=== PATIENT | male | born 1995 | race Two or more races ===

== ENCOUNTER 2017-03-13 18:19 | Emergency (ER) | payer SELFPAY ==
[~2017-03-13] VITALS: Ht 167.6 cm; Wt 63.5 kg
[2017-03-13] MEDS ORDERED: CEPH500T7 PO (19:30)
--- NOTE | 2017-03-13 19:34 | ER Report ---
History and Physical Time Seen By MD: 18:40 Hx. of Stated Complaint: 3 days sore throat HPI/ROS CHIEF COMPLAINT: Sore throat HISTORY OF PRESENT ILLNESS: 22-year-old male patient presents to emergency room with complaint of sore throat. Patient states that he's been having sore throat for the past 3 days. Patient denies having any chills, however he states that he is felt, shaky like he's had a fever. Patient states that his throat hurts pretty significantly. He rates as a 9.5 out of 10. Patient states he is able to eat and drink without any difficulties. Patient states he is visiting from [place] and [place] with a friend. He states that he is not having nausea, vomiting or diarrhea. Allergies: Coded Allergies: No Known Drug Allergies (Unverified , 03/13/17) Home Meds Active Scripts Cephalexin 500 Mg Tab (KEFLEX 500 MG TAB) 500 Mg Tablet, 500 MG PO Q6H, #28 TAB Prov:LOUANNDEANNA HAZARDOUS MATERIAL TECHNICIAN 03/13/17 Past Medical/Surgical History Patient has a past medical history of hiatal hernia. Patient has a surgical history of endoscopy. Reviewed Nurses Notes: Yes Hx Substance Use Disorder: No Hx Alcohol Use: No Constitutional Vital Sign - Last 24 Hours 03/13/17 03/13/17 18:34 19:39 Temp 100.6 100.5 Pulse 89 95 Resp 18 16 B/P (MAP) 130/72 128/82 (97) Pulse Ox 96 95 O2 Delivery Room Air Room Air Physical Exam General appearance: Alert no distress. Respiratory: Chest is non tender, lungs are clear to auscultation. Cardiac: Regular rate and rhythm. ENT: Tympanic membranes are pearly-hwang, auditory canals are patent, mucous membranes are moist. Patient does have significant purulent discharge from the bilateral tonsils. DIFFERENTIAL DIAGNOSIS: After history and physical exam differential diagnosis was considered for influenza, strep, mono. Medical Decision Making Data Points Laboratory Hematology Test 03/13/17 18:36 Influenza Type A Antigen Negative (NEGATIVE) Influenza Type B Antigen Negative (NEGATIVE) Group A Streptococcus Screen Negative (NEGATIVE) Chemistry Test 03/13/17 18:36 Influenza Type A Antigen Negative (NEGATIVE) Influenza Type B Antigen Negative (NEGATIVE) Group A Streptococcus Screen Negative (NEGATIVE) ED Course/Re-evaluation ED Course Patient was admitted in exam room, history and physical were obtained. Differential diagnoses were considered. On examination patient has purulent discharge from the bilateral tonsils as well as posterior pharynx. A strep screen was obtained, influenza screen was also obtained. The results of the lab tests were negative. I discussed findings with patient. We will go ahead and treat him with Keflex, presuming that this is a bacterial infection. I do have some concerns about possible mono. Does well like him follow-up with his primary care provider next 3-5 days. If he is having persistent trouble at that time I think that a Monospot would be appropriate. I discussed this with the patient who verbalized understanding and agreement. Decision to Disposition Date: Mar 13, 2017 Decision to Disposition Time: 19:33 Depart Departure Latest Vital Signs Vital Signs Date Time Temp Pulse Resp B/P (MAP) Pulse Ox O2 Delivery O2 Flow Rate FiO2 03/13/17 19:39 100.5 95 16 128/82 (97) 95 Room Air Impression: Primary Impression: Pharyngitis Condition: Improved Disposition: HOME OR SELF-CARE New Scripts Cephalexin 500 Mg Tab (KEFLEX 500 MG TAB) 500 Mg Tablet 500 MG PO Q6H, #28 TAB Prov: DEANNA LEW 03/13/17 Patient Instructions: Pharyngitis (ED) Additional Instructions: Increase fluid intake. Get plenty of rest. Follow up with your primary care provider in the next 3-5 days. We are going to culture the swab and will call if there is any need to change your antibiotics. Take Tylenol or Ibuprofen as needed for pain. Use the Chloraseptic [place] to help with the pain. Magic Mouthwash as directed for pain Problem Qualifiers Primary Impression: Pharyngitis Pharyngitis/tonsillitis etiology: unspecified etiology Qualified Codes: J02.9 - Acute pharyngitis, unspecified DEANNA LEW Mar 13, 2017 19:34
[2017-03-13] MEDS ORDERED: CEPHALEXIN 500 MG CAP TH 2 CAP/BOTTLE PO ONE (19:35)
[2017-03-13] MEDS ORDERED: LIDOCAINE 2% VISC SLN 15ML UDC PO ONE (19:35)
[2017-03-13 19:39] VITALS: BP 128/82
[2017-03-14] MEDS ORDERED: TETR-30 PO (10:38)
[2017-03-14] MEDS ORDERED: ONDA4TAB PO (10:38)
[2017-03-14] MEDS ORDERED: METR-160 PO (10:38)
[2017-03-14] MEDS ORDERED: BISM262T85 PO (10:38)
[2017-03-14] MEDS ORDERED: OMEP-125 PO (10:38)
== END 2017-03-13 19:48 | disposition home or self-care (01) ==
LOC: ER 18:36
DX: J02.9 Acute pharyngitis, unspecified (principal)
CPT/HCPCS: 87081; 87502; 87880; 99282

== ENCOUNTER 2017-03-14 09:25 | Emergency (ER) | payer SELFPAY ==
[~2017-03-14] VITALS: Ht 167.6 cm; Wt 63.5 kg
[~2017-03-14 09:25] MED LIST: CEPH500T7 PO
--- NOTE | 2017-03-14 09:31 | ER Report ---
History and Physical Time Seen By MD: 09:28 HPI/ROS CC: Nausea vomiting HPI: 22-year-old male with a negative past medical history presents to the emergency department with nausea vomiting that started at approximately midnight. It's been ongoing for approximately 10 hours. He states that his last meal was 20/ 100 last night and then started with nausea vomiting approximately 3 hours after that. He states that he ate tamales. He was in the emergency department yesterday for sore throat and was started for influenza. B and strep were negative. He states that he also has GERD with I hernia and presently he has epigastric pain. Burning in nature that he is reading as 8-9 out of 10. He has not been tested in the past for H. pylori. He he denies any hematemesis or diarrhea. No alleviating factors. Activity makes it worse. ROS: 12 point review of systems essentially negative other than what's mentioned in history of present illness. NURSES AND OLD MEDICAL RECORDS: Reviewed PMH: Reviewed SURGICAL HX: Reviewed FAMILY HX: Noncontributory SOCIAL HX: Denies smoking alcohol or illicit drugs. VITAL SIGNS: Reviewed CONSTITUTIONAL: 42-year-old male in moderate distress. PHYSICAL EXAM: HEENT: Pupils equal round reactive to light and accommodate, EOMI, tympanic membranes pearly white umbo present with good light reflex. Lips dry mucous membranes moist gums nonbleeding uvula midline and rises equally with phonation, oropharynx noninjected, teeth intact. NECK: Neck supple, thyroid not appreciated, anterior and posterior cervical lymphadenopathy not appreciated. Trachea midline and rises equally with phonation. CARDIAC: S1-S2 regular rate rhythm no murmurs rubs or gallops. LUNGS: Lungs clear bilaterally posteriorly in all leung. Good air movement. ABDOMEN: Abdomen soft, midepigastric tenderness, nondistended, bowel sounds diminished in all 4 quadrants, no bruits noted, no CVA tenderness. MUSCULOSKELETAL: Strength 5 out of 5 x 4 extremities, no deformities noted. NEUROLOGIC: Patient alert and oriented by 3 Allergies: Coded Allergies: No Known Drug Allergies (Unverified , 03/14/17) Home Meds Active Scripts Cephalexin 500 Mg Tab (KEFLEX 500 MG TAB) 500 Mg Tablet, 500 MG PO Q6H, #28 TAB Prov:DEANNA LEW UTILITY LOCATE TECHNICIAN 03/13/17 Hx Substance Use Disorder: No Hx Alcohol Use: No Constitutional Vital Sign - Last 24 Hours 03/14/17 03/14/17 03/14/17 03/14/17 09:31 09:33 09:35 09:40 Temp 98.5 Pulse 97 121 85 Resp 16 B/P (MAP) 155/100 (118) 155/100 Pulse Ox 96 96 99 O2 Delivery Room Air 03/14/17 03/14/17 03/14/17 03/14/17 09:45 09:50 09:55 10:00 Pulse 93 82 84 B/P (MAP) 145/85 (105) Pulse Ox 95 99 98 97 03/14/17 03/14/17 03/14/17 10:05 10:10 10:15 Pulse 82 75 72 Pulse Ox 98 98 96 Medical Decision Making Data Points Result Diagram: 03/14/1736 03/14/17 0936 Laboratory Hematology Test 03/14/17 09:36 Red Blood Count 4.72 M/uL (4.00-5.60) Mean Corpuscular Volume 91.8 fL (80.0-96.0) Mean Corpuscular Hemoglobin 32.1 pg (26.0-33.0) Mean Corpuscular Hemoglobin Concent 35.0 g/dL (32.0-36.0) Red Cell Distribution Width 13.6 % (11.5-14.5) Mean Platelet Volume 7.6 fL (7.2-11.1) Neutrophils (%) (Auto) 89.5 % (39.4-72.5) Lymphocytes (%) (Auto) 4.8 % (17.6-49.6) Monocytes (%) (Auto) 5.1 % (4.1-12.4) Eosinophils (%) (Auto) 0.2 % (0.4-6.7) Basophils (%) (Auto) 0.4 % (0.3-1.4) Nucleated RBC Relative Count (auto) 0.0 /100WBC Neutrophils # (Auto) 19.0 K/uL (2.0-7.4) Lymphocytes # (Auto) 1.0 K/uL (1.3-3.6) Monocytes # (Auto) 1.1 K/uL (0.3-1.0) Eosinophils # (Auto) 0.1 K/uL (0.0-0.5) Basophils # (Auto) 0.1 K/uL (0.0-0.1) Nucleated RBC Absolute Count (auto) 0.00 K/uL Peripheral Blood Smear Yes Y/N Sodium Level 138 mmol/L (137-145) Potassium Level 3.8 mmol/L (3.5-5.0) Chloride Level 99 mmol/L (98-107) Carbon Dioxide Level 23 mmol/L (22-30) Blood Urea Nitrogen 14 mg/dl (9-21) Creatinine 1.40 mg/dl (0.66-1.25) Glomerular Filtration Rate Calc > 60.0 Random Glucose 136 mg/dl (75-110) Calcium Level 9.8 mg/dl (8.4-10.2) Total Bilirubin 1.0 mg/dl (0.2-1.3) Aspartate Amino Transf (AST/SGOT) 24 U/L (0-35) Alanine Aminotransferase (ALT/SGPT) 27 U/L (0-56) Alkaline Phosphatase 86 U/L (0-126) Total Protein 8.8 gm/dl (6.3-8.2) Albumin 4.7 g/dl (3.5-5.0) Amylase Level 89 U/L (0-110) Lipase 115 U/L (23-300) Helicobacter pylori IgG Antibody Positive (NEGATIVE) Chemistry Test 03/14/17 09:36 White Blood Count 21.2 k/uL (4.5-11.0) Red Blood Count 4.72 M/uL (4.00-5.60) Hemoglobin 15.2 g/dL (14.0-18.0) Hematocrit 43.4 % (42.0-52.0) Mean Corpuscular Volume 91.8 fL (80.0-96.0) Mean Corpuscular Hemoglobin 32.1 pg (26.0-33.0) Mean Corpuscular Hemoglobin Concent 35.0 g/dL (32.0-36.0) Red Cell Distribution Width 13.6 % (11.5-14.5) Platelet Count 228 K/uL (150-450) Mean Platelet Volume 7.6 fL (7.2-11.1) Neutrophils (%) (Auto) 89.5 % (39.4-72.5) Lymphocytes (%) (Auto) 4.8 % (17.6-49.6) Monocytes (%) (Auto) 5.1 % (4.1-12.4) Eosinophils (%) (Auto) 0.2 % (0.4-6.7) Basophils (%) (Auto) 0.4 % (0.3-1.4) Nucleated RBC Relative Count (auto) 0.0 /100WBC Neutrophils # (Auto) 19.0 K/uL (2.0-7.4) Lymphocytes # (Auto) 1.0 K/uL (1.3-3.6) Monocytes # (Auto) 1.1 K/uL (0.3-1.0) Eosinophils # (Auto) 0.1 K/uL (0.0-0.5) Basophils # (Auto) 0.1 K/uL (0.0-0.1) Nucleated RBC Absolute Count (auto) 0.00 K/uL Peripheral Blood Smear Yes Y/N Glomerular Filtration Rate Calc > 60.0 Calcium Level 9.8 mg/dl (8.4-10.2) Total Bilirubin 1.0 mg/dl (0.2-1.3) Aspartate Amino Transf (AST/SGOT) 24 U/L (0-35) Alanine Aminotransferase (ALT/SGPT) 27 U/L (0-56) Alkaline Phosphatase 86 U/L (0-126) Total Protein 8.8 gm/dl (6.3-8.2) Albumin 4.7 g/dl (3.5-5.0) Amylase Level 89 U/L (0-110) Lipase 115 U/L (23-300) Helicobacter pylori IgG Antibody Positive (NEGATIVE) ED Course/Re-evaluation ED Course Patient's positive for H. pylori. WBC is 21,000 most likely secondary to nausea and vomiting. He may also have food poisoning. He received Phenergan, Zofran and a liter normal saline. He is improved. He will follow up with Dr. Schmid for an EGD. Patient will plan and agreement. Re-evaluation Medical decision making includes but not excluded to GERD, for poisoning, H. pylori A, I rule out gastroenteritis. Decision to Disposition Date: Mar 14, 2017 Decision to Disposition Time: 10:42 Depart Departure Latest Vital Signs Vital Signs Date Time Temp Pulse Resp B/P (MAP) Pulse Ox O2 Delivery O2 Flow Rate FiO2 03/14/17 10:15 72 96 03/14/17 10:00 145/85 (105) 03/14/17 09:33 98.5 16 Room Air Impression: Primary Impression: Bacterial infection due to Helicobacter pylori Additional Impression: Nausea & vomiting Condition: Improved Disposition: HOME OR SELF-CARE Referrals: TRANG SCHMID MD 1 Day Call today to make an appointment for evaluation of his stomach. New Scripts Ondansetron (ZOFRAN ODT) 4 Mg Tab.rapdis 8 MG PO Q6H Y for NAUSEA/VOMITING, #20 TAB.JMI 0 Refills Prov: NGA JOSEPH MD 03/14/17 Omeprazole (OMEPRAZOLE) 20 Mg Capsule.dr 1 CAP PO BID for 14 Days, CAP Prov: NGA JOSEPH MD 03/14/17 Metronidazole (METRONIDAZOLE) 500 Mg Tablet 500 MG PO QID for 14 Days, TAB Prov: NGA JOSEPH MD 03/14/17 Tetracycline Hcl (TETRACYCLINE HCL) 500 Mg Capsule 500 MG PO QID for 14 Days, CAPSULE Prov: NGA JOSEPH MD 03/14/17 Bismuth Subsalicylate (PEPTO-BISMOL) 262 Mg Tab.chew 524 MG PO QID for 14 Days, TAB.CHEW Prov: NGA JOSEPH MD 03/14/17 Patient Instructions: Helicobacter Pylori (ED) Additional Instructions: You have been given 4 medications takes them as prescribed for 14 days. Follow- up with Dr. Schmid for further evaluation. Zofran as for the nausea. I and the staff wanted to thank you for allowing us to take care of your needs today in the emergency department at [facility]. We have tried to answer all of your questions and concerns. Please feel free to return to the emergency department for any further concerns or unanswered questions. Problem Qualifiers Additional Impression: Nausea & vomiting Vomiting type: unspecified Vomiting Intractability: unspecified Qualified Codes: R11.2 - Nausea with vomiting, unspecified NGA JOSEPH MD Mar 14, 2017 09:31
[2017-03-14] MEDS ORDERED: ONDANSETRON 4 MG/2 ML VIAL ONE (09:36)
[2017-03-14] MEDS ORDERED: LIDOCAINE 2% VISC SLN 15ML UDC PO ONE (09:45)
[2017-03-14] MEDS ORDERED: ONDANSETRON 4 MG/2 ML VIAL IVP ONE (09:45)
[2017-03-14] MEDS ORDERED: ATRO/SCOPOL/HYOSCY/PB 5 ML ELX PO ONE (09:45)
[2017-03-14] MEDS ORDERED: MAG HYD/AL HYD/SIMETH 30ML UDC PO ONE (09:45)
[2017-03-14 09:50] LABS: PLATELET COUNT, AUTOMATED 228 K/uL (150-450)
[2017-03-14] MEDS ORDERED: LR(*) 1000 ML BAG 1,000 ML IV PRN (10:00)
[2017-03-14] MEDS ORDERED: LORazepam 2 MG/ML VIAL IVP ONE (10:30)
[2017-03-14] MEDS ORDERED: OMEP-125 PO (10:38)
[2017-03-14] MEDS ORDERED: TETR-30 PO (10:38)
[2017-03-14] MEDS ORDERED: BISM262T85 PO (10:38)
[2017-03-14] MEDS ORDERED: ONDA4TAB PO (10:38)
[2017-03-14] MEDS ORDERED: METR-160 PO (10:38)
[2017-03-14] MEDS ORDERED: PROMETHAZINE 25 MG/ML 1 ML AMP IVP ONE (10:45)
[2017-03-14 10:54] VITALS: BP 141/89
== END 2017-03-14 11:15 | disposition home or self-care (01) ==
LOC: ER 09:33
DX: A04.8 Other specified bacterial intestinal infections (principal)
CPT/HCPCS: 82150; 83690; 85025; 86677; 96361; 96374; 96375; 99284; J2405; J2550; J7120; 82040; 82247; 82310; 82374; 82435; 82565; 82947; 84075; 84132; 84155; 84295; 84450; 84460; 84520

== ENCOUNTER 2017-04-02 13:12 | Emergency (ER) | payer SELFPAY ==
[~2017-04-02] VITALS: Ht 167.6 cm; Wt 63.5 kg
[~2017-04-02 13:12] MED LIST changes: +BISM262T85 PO; +METR-160 PO; +OMEP-125 PO; +ONDA4TAB PO; +TETR-30 PO
[2017-04-02] MEDS ORDERED: NS(*) 0.9% 1000 ML BAG 1,000 ML IV ONE (13:31)
[2017-04-02] MEDS ORDERED: FAMOTIDINE(*) 20MG/50ML PREMIX 50 ML IVPB ONE (13:31)
[2017-04-02] MEDS ORDERED: ONDANSETRON 4 MG/2 ML VIAL IVP ONE (13:35)
--- NOTE | 2017-04-02 13:38 | ER Report ---
History and Physical Time Seen By MD: 13:20 Hx. of Stated Complaint: N/V SINCE LAST NIGHT. STILL BEING TREATED FOR H PYLORI. HPI/ROS CHIEF COMPLAINT: Nausea, vomiting, diarrhea, abdominal pain HISTORY OF PRESENT ILLNESS: Patient is a 22-year-old male who presents to ED with complaint of nausea, vomiting, diarrhea, abdominal pain that started last night. He states that he was here in the emergency room earlier this month and was diagnosed with H. pylori. He states that he was taking all of his antibiotics and medication until past 2 days. He states that he discontinued it because he was feeling improved. He states that he was diagnosed with gastric ulcers 2 years ago after an endoscopy. He states that he did not follow-up after this. He states that yesterday prior to the symptoms starting he was at [facility] and had a hot and spicy burger that he believes might of started issues with this ulcers. He denies any fever. He denies any dysuria, hematuria, increased urinary frequency. REVIEW OF SYSTEMS: Constitutional: No fever, no chills. Eyes: No discharge. ENT: No sore throat. Cardiovascular: No chest pain, no palpitations. Respiratory: No cough, no shortness of breath. Gastrointestinal: See history of present illness. Genitourinary: See history of present illness. Musculoskeletal: No back pain. Skin: No rashes. Neurological: No headache. Allergies: Coded Allergies: No Known Drug Allergies (Unverified , 03/14/17) Home Meds Active Scripts Ondansetron (ZOFRAN ODT) 4 Mg Tab.rapdis, 8 MG PO Q6H Y for NAUSEA/VOMITING, # 20 TAB.JIM 0 Refills Prov:NGA JOSEPH MD 03/14/17 Omeprazole (OMEPRAZOLE) 20 Mg Capsule.dr, 1 CAP PO BID for 14 Days, CAP Prov:NGA JOSEPH MD 03/14/17 Metronidazole (METRONIDAZOLE) 500 Mg Tablet, 500 MG PO QID for 14 Days, TAB Prov:NGA JOSEPH MD 03/14/17 Tetracycline Hcl (TETRACYCLINE HCL) 500 Mg Capsule, 500 MG PO QID for 14 Days, CAPSULE Prov:NGA JOSEPH MD 03/14/17 Bismuth Subsalicylate (PEPTO-BISMOL) 262 Mg Tab.chew, 524 MG PO QID for 14 Days , TAB.CHEW Prov:NGA JOSEPH MD 03/14/17 Cephalexin 500 Mg Tab (KEFLEX 500 MG TAB) 500 Mg Tablet, 500 MG PO Q6H, #28 TAB Prov:LOUANNDEANNA AMISHA 03/13/17 Reviewed Nurses Notes: Yes Old Medical Records Reviewed: Yes Hx Substance Use Disorder: No Hx Alcohol Use: No Constitutional Vital Sign - Last 24 Hours 04/02/17 13:18 Temp 98.4 Pulse 76 Resp 16 B/P (MAP) 140/92 Pulse Ox 96 O2 Delivery Room Air Physical Exam General Appearance: The patient is alert, has no immediate need for airway protection and no signs of toxicity. She appears to be no acute distress. Eyes: Pupils equal and round no pallor or injection. ENT, Mouth: Mucous membranes are moist. Respiratory: There are no retractions, lungs are clear to auscultation. Cardiovascular: Regular rate and rhythm. Gastrointestinal: There is right upper quadrant and epigastric tenderness with palpation. Negative Royal's. No loss sounds in all 4 quadrants. No rebound or guarding is present. Skin: Warm and dry, no rashes. Musculoskeletal: Neck is supple non tender. Extremities are nontender, nonswollen and have full range of motion. DIFFERENTIAL DIAGNOSIS: After history and physical exam differential diagnosis was considered for abdominal pain including but not limited to appendicitis, cholecystitis, gastritis and urinary tract infection. Medical Decision Making Data Points Result Diagram: 04/02/17 1337 04/02/17 1337 Laboratory Hematology Test 04/02/17 13:30 04/02/17 13:37 Urine Color Yellow Urine Clarity Cloudy Urine pH 8.0 pH (4.8-9.5) Urine Specific [place] 1.026 Urine Protein 100 mg/dL (NEGATIVE) Urine Glucose (UA) Negative mg/dL (NEGATIVE) Urine Ketones 20 mg/dL (NEGATIVE) Urine Blood Negative (NEGATIVE) Urine Nitrite Negative (NEGATIVE) Urine Bilirubin Negative (NEGATIVE) Urine Urobilinogen Negative mg/dL (0.2-1.9) Urine Leukocyte Esterase Negative (NEGATIVE) Urine RBC None /HPF (0-2/HPF) Urine WBC None /HPF (0-5/HPF) Urine Squamous Epithelial Cells None /LPF (</=FEW) Urine Amorphous Crystals Few /HPF Urine Bacteria Few /HPF (NONE-FEW) Urine Mucus Few /HPF (NONE-FEW) Red Blood Count 4.83 M/uL (4.00-5.60) Mean Corpuscular Volume 90.8 fL (80.0-96.0) Mean Corpuscular Hemoglobin 31.1 pg (26.0-33.0) Mean Corpuscular Hemoglobin Concent 34.3 g/dL (32.0-36.0) Red Cell Distribution Width 14.5 % (11.5-14.5) Mean Platelet Volume 6.7 fL (7.2-11.1) Neutrophils (%) (Auto) 88.5 % (39.4-72.5) Lymphocytes (%) (Auto) 8.1 % (17.6-49.6) Monocytes (%) (Auto) 2.7 % (4.1-12.4) Eosinophils (%) (Auto) 0.0 % (0.4-6.7) Basophils (%) (Auto) 0.7 % (0.3-1.4) Nucleated RBC Relative Count (auto) 0.0 /100WBC Neutrophils # (Auto) 11.3 K/uL (2.0-7.4) Lymphocytes # (Auto) 1.0 K/uL (1.3-3.6) Monocytes # (Auto) 0.3 K/uL (0.3-1.0) Eosinophils # (Auto) 0.0 K/uL (0.0-0.5) Basophils # (Auto) 0.1 K/uL (0.0-0.1) Nucleated RBC Absolute Count (auto) 0.00 K/uL Sodium Level 139 mmol/L (137-145) Potassium Level 4.0 mmol/L (3.5-5.0) Chloride Level 98 mmol/L (98-107) Carbon Dioxide Level 24 mmol/L (22-30) Blood Urea Nitrogen 16 mg/dl (9-21) Creatinine 1.10 mg/dl (0.66-1.25) Glomerular Filtration Rate Calc > 60.0 Random Glucose 125 mg/dl (75-110) Calcium Level 10.4 mg/dl (8.4-10.2) Total Bilirubin 0.8 mg/dl (0.2-1.3) Aspartate Amino Transf (AST/SGOT) 36 U/L (0-35) Alanine Aminotransferase (ALT/SGPT) 41 U/L (0-56) Alkaline Phosphatase 77 U/L (0-126) Total Protein 8.8 gm/dl (6.3-8.2) Albumin 4.8 g/dl (3.5-5.0) Lipase 182 U/L (23-300) Chemistry Test 04/02/17 13:30 04/02/17 13:37 Urine Color Yellow Urine Clarity Cloudy Urine pH 8.0 pH (4.8-9.5) Urine Specific [place] 1.026 Urine Protein 100 mg/dL (NEGATIVE) Urine Glucose (UA) Negative mg/dL (NEGATIVE) Urine Ketones 20 mg/dL (NEGATIVE) Urine Blood Negative (NEGATIVE) Urine Nitrite Negative (NEGATIVE) Urine Bilirubin Negative (NEGATIVE) Urine Urobilinogen Negative mg/dL (0.2-1.9) Urine Leukocyte Esterase Negative (NEGATIVE) Urine RBC None /HPF (0-2/HPF) Urine WBC None /HPF (0-5/HPF) Urine Squamous Epithelial Cells None /LPF (</=FEW) Urine Amorphous Crystals Few /HPF Urine Bacteria Few /HPF (NONE-FEW) Urine Mucus Few /HPF (NONE-FEW) White Blood Count 12.7 k/uL (4.5-11.0) Red Blood Count 4.83 M/uL (4.00-5.60) Hemoglobin 15.0 g/dL (14.0-18.0) Hematocrit 43.9 % (42.0-52.0) Mean Corpuscular Volume 90.8 fL (80.0-96.0) Mean Corpuscular Hemoglobin 31.1 pg (26.0-33.0) Mean Corpuscular Hemoglobin Concent 34.3 g/dL (32.0-36.0) Red Cell Distribution Width 14.5 % (11.5-14.5) Platelet Count 421 K/uL (150-450) Mean Platelet Volume 6.7 fL (7.2-11.1) Neutrophils (%) (Auto) 88.5 % (39.4-72.5) Lymphocytes (%) (Auto) 8.1 % (17.6-49.6) Monocytes (%) (Auto) 2.7 % (4.1-12.4) Eosinophils (%) (Auto) 0.0 % (0.4-6.7) Basophils (%) (Auto) 0.7 % (0.3-1.4) Nucleated RBC Relative Count (auto) 0.0 /100WBC Neutrophils # (Auto) 11.3 K/uL (2.0-7.4) Lymphocytes # (Auto) 1.0 K/uL (1.3-3.6) Monocytes # (Auto) 0.3 K/uL (0.3-1.0) Eosinophils # (Auto) 0.0 K/uL (0.0-0.5) Basophils # (Auto) 0.1 K/uL (0.0-0.1) Nucleated RBC Absolute Count (auto) 0.00 K/uL Glomerular Filtration Rate Calc > 60.0 Calcium Level 10.4 mg/dl (8.4-10.2) Total Bilirubin 0.8 mg/dl (0.2-1.3) Aspartate Amino Transf (AST/SGOT) 36 U/L (0-35) Alanine Aminotransferase (ALT/SGPT) 41 U/L (0-56) Alkaline Phosphatase 77 U/L (0-126) Total Protein 8.8 gm/dl (6.3-8.2) Albumin 4.8 g/dl (3.5-5.0) Lipase 182 U/L (23-300) Urinalysis Test 04/02/17 13:30 Urine Color Yellow Urine Clarity Cloudy Urine pH 8.0 pH (4.8-9.5) Urine Specific [place] 1.026 Urine Protein 100 mg/dL (NEGATIVE) Urine Glucose (UA) Negative mg/dL (NEGATIVE) Urine Ketones 20 mg/dL (NEGATIVE) Urine Blood Negative (NEGATIVE) Urine Nitrite Negative (NEGATIVE) Urine Bilirubin Negative (NEGATIVE) Urine Urobilinogen Negative mg/dL (0.2-1.9) Urine Leukocyte Esterase Negative (NEGATIVE) Urine RBC None /HPF (0-2/HPF) Urine WBC None /HPF (0-5/HPF) Urine Squamous Epithelial Cells None /LPF (</=FEW) Urine Amorphous Crystals Few /HPF Urine Bacteria Few /HPF (NONE-FEW) Urine Mucus Few /HPF (NONE-FEW) ED Course/Re-evaluation Clinical Indication for ER IV: Hydration ED Course Patient will be given 1 L normal saline bolus, 4 mg IV Zofran, 20 mg IV Pepcid. Will obtain labs from patient. 04/02/2017 1:58:52 pm - discussed all labs with patient. He does have some mild leukocytosis which given his symptoms are likely stress related possibly from the vomiting. He states that he is starting to feel improved but still having some mild nausea and mild abdominal pain. Will give him 12.5 mg IV Phenergan to help with the nausea. 04/02/2017 2:36:21 pm - the patient is now resting comfortably. He is feeling somewhat improved. Will give him referral to general surgery for endoscopy him follow-up with his primary care provider as well. Advised him to continue his omeprazole. Will prescribe him some Zofran to take for nausea if needed. Advised him to stay well-hydrated. Advised him to stay away from spicy, fatty, fried acidic foods. Decision to Disposition Date: Apr 02, 2017 Decision to Disposition Time: 14:37 Depart Departure Latest Vital Signs Vital Signs Date Time Temp Pulse Resp B/P (MAP) Pulse Ox O2 Delivery O2 Flow Rate FiO2 04/02/17 13:18 98.4 76 16 140/92 96 Room Air Impression: Primary Impression: Nausea vomiting and diarrhea Additional Impression: Epigastric pain Condition: Improved Disposition: HOME OR SELF-CARE Referrals: TRANG DENNEY MD, TOM MD New Scripts Ondansetron (ZOFRAN ODT) 4 Mg Tab.rapdis 4 MG PO Q6H Y for NAUSEA/VOMITING, #10 TAB.JIM Prov: TIFFANIE PEMBERTON PA-C 04/02/17 Patient Instructions: Acute Diarrhea (ED), Acute Nausea and Vomiting (ED), Epigastric Pain (ED), Gastritis (ED) Additional Instructions: Stay well-hydrated. State weight from spicy, fatty, fried, sick foods. Take omeprazole daily. Take Zofran as needed for nausea. Follow up with your primary care provider in general surgery for endoscopy in 2-3 days. If having any worsening or concerning symptoms may return to the emergency department. Problem Qualifiers TIFFANIE PEMBERTON PA-C Apr 02, 2017 13:37
[2017-04-02 13:44] LABS: PLATELET COUNT, AUTOMATED 421 K/uL (150-450)
[2017-04-02] MEDS ORDERED: PROMETHAZINE 25 MG/ML 1 ML AMP IVP ONE (14:00)
[2017-04-02 14:30] VITALS: BP 148/86
[2017-04-02] MEDS ORDERED: ONDA4TAB PO (14:40)
== END 2017-04-02 14:58 | disposition home or self-care (01) ==
LOC: ER 13:24
DX: R11.2 Nausea with vomiting, unspecified (principal); R19.7 Diarrhea, unspecified; R10.13 Epigastric pain
CPT/HCPCS: 81001; 83690; 85025; 96365; 96375; 99284; J2405; J2550; J3490; J7030; 82040; 82247; 82310; 82374; 82435; 82565; 82947; 84075; 84132; 84155; 84295; 84450; 84460; 84520

== ENCOUNTER 2017-05-20 01:47 | Emergency (ER) | payer SELFPAY ==
[2017-05-20] MEDS ORDERED: NS(*) 0.9% 1000 ML BAG 1,000 ML IV ONE (01:56)
--- NOTE | 2017-05-20 01:56 | ER Report ---
History and Physical Time Seen By MD: 01:54 HPI/ROS CHIEF COMPLAINT: Vomiting and epigastric pain HISTORY OF PRESENT ILLNESS: This is a 22 year old male. He is having severe epigastric pain and vomiting. Feels like he is continually vomiting up acid. Problems off and on since March. Tonight started 2299. REVIEW OF SYSTEMS: Constitutional: [No fever or chills.] Eyes: [No discharge.] [No vision changes.] ENT: [No sore throat.] [No congestion.] [No hearing changes.] Cardiovascular: [No chest pain.] [No palpitations.] Respiratory: [No cough.] [No shortness of breath.] Gastrointestinal: [No abdominal pain.] [No nausea or vomiting.] [No change in bowel movements.] [No blood in the stool or melena.] Genitourinary: [No dysuria.] [No hematuria.] [No frequency] Musculoskeletal: [No back pain.] [No extremity pain.] Skin: [No rashes.] [No bruising.] Neurological: [No numbness.] [No weakness.] [No headache.] Allergies: Coded Allergies: montelukast (Verified Allergy, Mild, RASH, 05/20/17) Home Meds Active Scripts Omeprazole (OMEPRAZOLE) 20 Mg Capsule.dr, 1 CAP PO BID, #60 CAP 0 Refills Prov:SRI WAYNE MD 05/20/17 Clarithromycin (CLARITHROMYCIN) 500 Mg Tablet, 500 MG PO BID for 14 Days, #28 TAB 0 Refills Prov:SRI WAYNE MD 05/20/17 Amoxicillin (AMOXICILLIN) 500 Mg Capsule, 2 CAP PO BID for 14 Days, #56 CAPSULE 0 Refills Prov:SRI WAYNE MD 05/20/17 Ondansetron (ZOFRAN ODT) 4 Mg Tab.rapdis, 4 MG PO Q6H Y for NAUSEA/VOMITING, # 20 TAB.JIM 0 Refills Prov:SRI WAYNE MD 05/20/17 Hydrocodone Bit/Acetaminophen (HYDROCODON-ACETAMINOPHEN 5-325) 1 Each Tablet, 1 EACH PO Q4H Y for PAIN, #12 TAB 0 Refills Prov:SRI WAYNE MD 05/20/17 Sucralfate (CARAFATE) 1 Gm Tablet, 1 GM PO QID, #120 TAB 0 Refills Prov:SRI WAYNE MD 05/20/17 Omeprazole (OMEPRAZOLE) 20 Mg Capsule.dr, 1 CAP PO BID for 14 Days, CAP Prov:NGA JOSEPH MD 03/14/17 Metronidazole (METRONIDAZOLE) 500 Mg Tablet, 500 MG PO QID for 14 Days, TAB Prov:NGA JOSEPH MD 03/14/17 Tetracycline Hcl (TETRACYCLINE HCL) 500 Mg Capsule, 500 MG PO QID for 14 Days, CAPSULE Prov:NGA JOSEPH MD 03/14/17 Cephalexin 500 Mg Tab (KEFLEX 500 MG TAB) 500 Mg Tablet, 500 MG PO Q6H, #28 TAB Prov:DEANNA LEW 03/13/17 Discontinued Scripts Ondansetron (ZOFRAN ODT) 4 Mg Tab.rapdis, 4 MG PO Q6H Y for NAUSEA/VOMITING, # 10 TAB.JIM Prov:TIFFANIE PEMBERTON PA-C 04/02/17 Ondansetron (ZOFRAN ODT) 4 Mg Tab.rapdis, 8 MG PO Q6H Y for NAUSEA/VOMITING, # 20 TAB.JIM 0 Refills Prov:NGA JOSEPH MD 03/14/17 Bismuth Subsalicylate (PEPTO-BISMOL) 262 Mg Tab.chew, 524 MG PO QID for 14 Days , TAB.CHEW Prov:NGA JOSEPH MD 03/14/17 Past Medical/Surgical History Hiatal hernia, GERD, endoscopy Reviewed Nurses Notes: Yes Hx Substance Use Disorder: No Hx Alcohol Use: No Constitutional Physical Exam General Appearance: The patient is alert. Acute distress with uncontrolled retching and vomiting. Eyes: Pupils are equal, round. No pallor, injection or icterus. ENT: Mucous membranes are moist. Normal oral mucosa. Posterior oropharynx is normal. Respiratory: Lungs are clear to auscultation. Cardiovascular: Regular rhythm with tachycardia. No murmurs, gallops or rubs. Normal capillary refill. Gastrointestinal: Abdomen is soft, epigastric pain. Nondistended.Hyperactive bowel sounds. Neurological: Alert and oriented x3. No focal neurologic deficits Skin: Warm and dry. DIFFERENTIAL DIAGNOSIS: After history and physical exam, differential diagnosis was considered for epigastric pain including but not limited to biliary colic, cholecystitis, peptic ulcer disease, pancreatitis, and gastroenteritis. Medical Decision Making Data Points Laboratory Hematology Test 05/20/17 01:59 Red Blood Count 5.55 M/uL (4.00-5.60) Mean Corpuscular Volume 92.3 fL (80.0-96.0) Mean Corpuscular Hemoglobin 32.0 pg (26.0-33.0) Mean Corpuscular Hemoglobin Concent 34.7 g/dL (32.0-36.0) Red Cell Distribution Width 14.7 % (11.5-14.5) Mean Platelet Volume 7.7 fL (7.2-11.1) Neutrophils (%) (Auto) 38.7 % (39.4-72.5) Lymphocytes (%) (Auto) 47.4 % (17.6-49.6) Monocytes (%) (Auto) 7.1 % (4.1-12.4) Eosinophils (%) (Auto) 6.2 % (0.4-6.7) Basophils (%) (Auto) 0.6 % (0.3-1.4) Nucleated RBC Relative Count (auto) 0.0 /100WBC Neutrophils # (Auto) 3.7 K/uL (2.0-7.4) Lymphocytes # (Auto) 4.5 K/uL (1.3-3.6) Monocytes # (Auto) 0.7 K/uL (0.3-1.0) Eosinophils # (Auto) 0.6 K/uL (0.0-0.5) Basophils # (Auto) 0.1 K/uL (0.0-0.1) Nucleated RBC Absolute Count (auto) 0.00 K/uL Prothrombin Time 13.1 seconds (12.0-14.4) Prothromb Time International Ratio 0.99 Activated Partial Thromboplast Time 27 seconds (23-35) Urine Color Yellow Urine Clarity Cloudy Urine pH 6.0 pH (4.8-9.5) Urine Specific Red [place] 1.023 Urine Protein Negative mg/dL (NEGATIVE) Urine Glucose (UA) Negative mg/dL (NEGATIVE) Urine Ketones Negative mg/dL (NEGATIVE) Urine Blood Small (NEGATIVE) Urine Nitrite Negative (NEGATIVE) Urine Bilirubin Negative (NEGATIVE) Urine Urobilinogen 2.0 mg/dL (0.2-1.9) Urine Leukocyte Esterase Negative (NEGATIVE) Urine RBC 3 /HPF (0-2/HPF) Urine WBC 3 /HPF (0-5/HPF) Urine Squamous Epithelial Cells None /LPF (</=FEW) Urine Amorphous Crystals Moderate /HPF Urine Bacteria Negative /HPF (NONE-FEW) Urine Mucus Few /HPF (NONE-FEW) Gastric Fluid pH 5-7 pH Gastric Fluid Occult Blood Positive (NEGATIVE) Sodium Level 140 mmol/L (137-145) Potassium Level 3.8 mmol/L (3.5-5.0) Chloride Level 101 mmol/L (98-107) Carbon Dioxide Level 27 mmol/L (22-30) Blood Urea Nitrogen 15 mg/dl (9-21) Creatinine 1.30 mg/dl (0.66-1.25) Glomerular Filtration Rate Calc > 60.0 Random Glucose 115 mg/dl (75-110) Lactate 2.2 mmol/L (0.7-2.1) Calcium Level 10.1 mg/dl (8.4-10.2) Total Bilirubin 0.9 mg/dl (0.2-1.3) Aspartate Amino Transf (AST/SGOT) 29 U/L (0-35) Alanine Aminotransferase (ALT/SGPT) 30 U/L (0-56) Alkaline Phosphatase 78 U/L (0-126) C-Reactive Protein < 0.5 mg/dl (<1.0) Total Protein 8.3 gm/dl (6.3-8.2) Albumin 4.6 g/dl (3.5-5.0) Amylase Level 112 U/L (0-110) Lipase 269 U/L (23-300) Helicobacter pylori IgG Antibody Positive (NEGATIVE) Chemistry Test 05/20/17 01:59 White Blood Count 9.6 k/uL (4.5-11.0) Red Blood Count 5.55 M/uL (4.00-5.60) Hemoglobin 17.8 g/dL (14.0-18.0) Hematocrit 51.2 % (42.0-52.0) Mean Corpuscular Volume 92.3 fL (80.0-96.0) Mean Corpuscular Hemoglobin 32.0 pg (26.0-33.0) Mean Corpuscular Hemoglobin Concent 34.7 g/dL (32.0-36.0) Red Cell Distribution Width 14.7 % (11.5-14.5) Platelet Count 231 K/uL (150-450) Mean Platelet Volume 7.7 fL (7.2-11.1) Neutrophils (%) (Auto) 38.7 % (39.4-72.5) Lymphocytes (%) (Auto) 47.4 % (17.6-49.6) Monocytes (%) (Auto) 7.1 % (4.1-12.4) Eosinophils (%) (Auto) 6.2 % (0.4-6.7) Basophils (%) (Auto) 0.6 % (0.3-1.4) Nucleated RBC Relative Count (auto) 0.0 /100WBC Neutrophils # (Auto) 3.7 K/uL (2.0-7.4) Lymphocytes # (Auto) 4.5 K/uL (1.3-3.6) Monocytes # (Auto) 0.7 K/uL (0.3-1.0) Eosinophils # (Auto) 0.6 K/uL (0.0-0.5) Basophils # (Auto) 0.1 K/uL (0.0-0.1) Nucleated RBC Absolute Count (auto) 0.00 K/uL Prothrombin Time 13.1 seconds (12.0-14.4) Prothromb Time International Ratio 0.99 Activated Partial Thromboplast Time 27 seconds (23-35) Urine Color Yellow Urine Clarity Cloudy Urine pH 6.0 pH (4.8-9.5) Urine Specific Red [place] 1.023 Urine Protein Negative mg/dL (NEGATIVE) Urine Glucose (UA) Negative mg/dL (NEGATIVE) Urine Ketones Negative mg/dL (NEGATIVE) Urine Blood Small (NEGATIVE) Urine Nitrite Negative (NEGATIVE) Urine Bilirubin Negative (NEGATIVE) Urine Urobilinogen 2.0 mg/dL (0.2-1.9) Urine Leukocyte Esterase Negative (NEGATIVE) Urine RBC 3 /HPF (0-2/HPF) Urine WBC 3 /HPF (0-5/HPF) Urine Squamous Epithelial Cells None /LPF (</=FEW) Urine Amorphous Crystals Moderate /HPF Urine Bacteria Negative /HPF (NONE-FEW) Urine Mucus Few /HPF (NONE-FEW) Gastric Fluid pH 5-7 pH Gastric Fluid Occult Blood Positive (NEGATIVE) Glomerular Filtration Rate Calc > 60.0 Lactate 2.2 mmol/L (0.7-2.1) Calcium Level 10.1 mg/dl (8.4-10.2) Total Bilirubin 0.9 mg/dl (0.2-1.3) Aspartate Amino Transf (AST/SGOT) 29 U/L (0-35) Alanine Aminotransferase (ALT/SGPT) 30 U/L (0-56) Alkaline Phosphatase 78 U/L (0-126) C-Reactive Protein < 0.5 mg/dl (<1.0) Total Protein 8.3 gm/dl (6.3-8.2) Albumin 4.6 g/dl (3.5-5.0) Amylase Level 112 U/L (0-110) Lipase 269 U/L (23-300) Helicobacter pylori IgG Antibody Positive (NEGATIVE) Coagulation Test 05/20/17 01:59 Prothrombin Time 13.1 seconds Prothromb Time International Ratio 0.99 Activated Partial Thromboplast Time 27 seconds Urinalysis Test 05/20/17 01:59 Urine Color Yellow Urine Clarity Cloudy Urine pH 6.0 pH (4.8-9.5) Urine Specific Red [place] 1.023 Urine Protein Negative mg/dL (NEGATIVE) Urine Glucose (UA) Negative mg/dL (NEGATIVE) Urine Ketones Negative mg/dL (NEGATIVE) Urine Blood Small (NEGATIVE) Urine Nitrite Negative (NEGATIVE) Urine Bilirubin Negative (NEGATIVE) Urine Urobilinogen 2.0 mg/dL (0.2-1.9) Urine Leukocyte Esterase Negative (NEGATIVE) Urine RBC 3 /HPF (0-2/HPF) Urine WBC 3 /HPF (0-5/HPF) Urine Squamous Epithelial Cells None /LPF (</=FEW) Urine Amorphous Crystals Moderate /HPF Urine Bacteria Negative /HPF (NONE-FEW) Urine Mucus Few /HPF (NONE-FEW) EKG/Imaging Imaging EXAMINATION: CT abdomen with IV contrast CT pelvis with IV contrast HISTORY: Epigastric pain. TECHNIQUE: Spiral scan was through the abdomen and pelvis during injection of nonionic iodinated intravenous contrast. Sagittal and coronal reformatted images are also submitted. One of the following dose optimization techniques was utilized in the performance of this exam: Automated exposure control; adjustment of the mA and/ or kV according to the patient's size; or use of an iterative reconstruction technique. Specific details can be referenced in the facility's radiology CT exam operational policy. CONTRAST: 75 mL of IV Isovue-370 COMPARISON: None. FINDINGS: Lower chest: Negative. Liver / biliary: Negative. Pancreas: Negative. Spleen: Negative. Adrenal glands: Negative. Kidneys: Negative. Pelvic structures: Negative. Bowel: Normal appendix. Otherwise negative. Peritoneum / retroperitoneum / mesenteries: Negative. Vessels: Negative. Musculoskeletal / Body wall: Negative. Lymph node assessment: Negative. IMPRESSION: No acute abnormality in the abdomen or pelvis. Report Dictated By: Brian Xiong MD at 05/20/2017 3:39 AM ED Course/Re-evaluation Clinical Indication for ER IV: Hydration, IV Access ED Course Initially given Protonix, Zofran, Morphine and a liter of normal saline. Continued vomiting and dry heaving. Given Phenergan 12.5mg IV with limited success. Given another dose of Phenergan 12.5mg IV and Pepcid 20mg IV. Vomiting has decreased and still with some pain. Given a GI cocktail. Later vomiting increased again and was given Metoclopramide. Sucralfate given, another dose of morphine for pain and oral lortab. Discussed the case with Dr. Black. Will plan on having him follow-up as an outpatient. See instructions below. Decision to Disposition Date: May 20, 2017 Decision to Disposition Time: 04:59 Depart Departure Latest Vital Signs Impression: Primary Impression: Epigastric pain Additional Impression: Gastritis and duodenitis Condition: Improved Disposition: HOME OR SELF-CARE New Scripts Omeprazole (OMEPRAZOLE) 20 Mg Capsule. 1 CAP PO BID, #60 CAP 0 Refills Prov: SRI WAYNE MD 05/20/17 Clarithromycin (CLARITHROMYCIN) 500 Mg Tablet 500 MG PO BID for 14 Days, #28 TAB 0 Refills Prov: SRI WAYNE MD 05/20/17 Amoxicillin (AMOXICILLIN) 500 Mg Capsule 2 CAP PO BID for 14 Days, #56 CAPSULE 0 Refills Prov: SRI WAYNE MD 05/20/17 Ondansetron (ZOFRAN ODT) 4 Mg Tab.rapdis 4 MG PO Q6H Y for NAUSEA/VOMITING, #20 TAB.JIM 0 Refills Prov: SRI WAYNE MD 05/20/17 Hydrocodone Bit/Acetaminophen (HYDROCODON-ACETAMINOPHEN 5-325) 1 Each Tablet 1 EACH PO Q4H Y for PAIN, #12 TAB 0 Refills Prov: SRI WAYEN MD 05/20/17 Sucralfate (CARAFATE) 1 Gm Tablet 1 GM PO QID, #120 TAB 0 Refills Prov: SRI WAYNE MD 05/20/17 Patient Instructions: Diet for Stomach Ulcers and Gastritis (ED), Gastritis (ED ) Additional Instructions: We think that your epigastric abdominal pain is caused by ulcer disease or gastritis. Keep taking Omeprazole 20mg tablets twice a day. This reduces stomach acid in the stomach. Take Carafate 1g tablets 4 times a day. This coats the stomach to reduce pain and damage to the lining of the stomach. We would like to have you stop your current antibiotics as they are not helping with the problem. We want to switch you two two different antibiotics that are considered first line therapy for your problem. Clarithromycin 500mg twice a day for 14 days. Amoxicillin 500mg capsules, take 2 capsules twice a day for [address] Black's office today to schedule an appointment for further evaluation. Let them know that you were seen in the ER [facility]. It is important to follow-up because of the possibility of ulcers and bleeding in the stomach. Take Zofran 4mg, one every 6 hours as needed for nausea. Take Lortab 5/325, one every 4 hours as needed for severe pain. Avoid any antiinflammatories, acidic foods, spicy foods, caffeine, chocolate, coffee and alcohol. Problem Qualifiers SRI WAYNE MD May 20, 2017 01:56
[2017-05-20] MEDS ORDERED: ONDANSETRON 4 MG/2 ML VIAL IVP ONE (02:00)
[2017-05-20] MEDS ORDERED: PANTOPRAZOLE SOD 40 MG IV VIAL IVP ONE (02:00)
[2017-05-20] MEDS ORDERED: MORPHINE 4 MG/ML SDV IVP ONE ×2 (02:00→06:25)
[2017-05-20 02:10] LABS: PLATELET COUNT, AUTOMATED 231 K/uL (150-450)
[2017-05-20] MEDS ORDERED: IOPAMIDOL 76% 75 ML INFUS BTL 75 ML ONE (02:11)
[2017-05-20] MEDS ORDERED: PROMETHAZINE 25 MG/ML 1 ML AMP IVP ONE ×2 (02:15→02:45)
[2017-05-20 02:21] LABS: INR 0.99
[2017-05-20] MEDS ORDERED: FAMOTIDINE(*) 20MG/50ML PREMIX 50 ML IVPB ONE (02:54)
[2017-05-20] MEDS ORDERED: MAG HYD/AL HYD/SIMETH 30ML UDC PO ONE (02:55)
[2017-05-20] MEDS ORDERED: LIDOCAINE 2% VISC SLN 15ML UDC PO ONE (02:55)
[2017-05-20] MEDS ORDERED: ATRO/SCOPOL/HYOSCY/PB 5 ML ELX PO ONE (02:55)
[2017-05-20] MEDS ORDERED: METOCLOPRAMIDE 10 MG/2 ML SDV IVP ONE ×2 (03:35→06:25)
--- NOTE | 2017-05-20 03:51 | RADIOLOGY IMAGING REPORT ---
FACILITY: [facility] - [place] PATIENT NAME: Rei Roberto : 1995 MR: [id number] V: [id number] EXAM DATE: ORDERING PHYSICIAN: SRI WAYNE TECHNOLOGIST: Location: [facility] - [place], [place] Patient: Rei Roberto : 1995 Visit/Account:[id number] Date of Sevice: 05/20/2017 EXAMINATION: CT abdomen with IV contrast CT pelvis with IV contrast HISTORY: Epigastric pain. TECHNIQUE: Spiral scan was through the abdomen and pelvis during injection of nonionic iodinated in travenous contrast. Sagittal and coronal reformatted images are also submitted. One of the following dose optimization techniques was utilized in the performance of this exam: Autom ated exposure control; adjustment of the mA and/or kV according to the patient's size; or use of an i terative reconstruction technique. Specific details can be referenced in the facility's radiology C T exam operational policy. CONTRAST: 75 mL of IV Isovue-370 COMPARISON: None. FINDINGS: Lower chest: Negative. Liver / biliary: Negative. Pancreas: Negative. Spleen: Negative. Adrenal glands: Negative. Kidneys: Negative. Pelvic structures: Negative. Bowel: Normal appendix. Otherwise negative. Peritoneum / retroperitoneum / mesenteries: Negative. Vessels: Negative. Musculoskeletal / Body wall: Negative. Lymph node assessment: Negative. IMPRESSION: No acute abnormality in the abdomen or pelvis. Report Dictated By: Brian Xiong MD at 05/20/2017 3:39 AM Report E-Signed By: Brian Xiong MD at 05/20/2017 3:46 AM WSN:[id number]
[2017-05-20] MEDS ORDERED: SUCRALFATE 1 GM TAB PO ONE (04:25)
[2017-05-20] MEDS ORDERED: SUCR1TAB85 PO (05:05)
[2017-05-20] MEDS ORDERED: ACET/HYDROC 5/325MG TH ER ONLY 2 TAB/BOTTLE PO ONE (06:40)
[2017-05-20] MEDS ORDERED: ONDANSETRON 4 MG ODT TH SL ONE (06:40)
[2017-05-20] MEDS ORDERED: LOR5/325 PO (06:41)
[2017-05-20] MEDS ORDERED: AMOX-362 PO (06:41)
[2017-05-20] MEDS ORDERED: ONDA4TAB PO (06:41)
[2017-05-20] MEDS ORDERED: CLAR-1 PO (06:41)
[2017-05-20] MEDS ORDERED: OMEP-125 PO (06:42)
[2017-05-20 07:04] VITALS: BP 123/92
== END 2017-05-20 07:26 | disposition home or self-care (01) ==
LOC: ER 01:48
DX: K29.70 Gastritis, unspecified, without bleeding (principal); K29.80 Duodenitis without bleeding
CPT/HCPCS: 74177; 81001; 82150; 82271; 83605; 83690; 83986; 85025; 85610; 85730; 86140; 86677; 96361; 96374; 96375; 96376; 99284; C9113; J2270; J2405; J2550; J2765; J3490; J7030; Q9967; S0119; 82040; 82247; 82310; 82374; 82435; 82565; 82947; 84075; 84132; 84155; 84295; 84450; 84460; 84520

== ENCOUNTER 2017-07-07 14:08 | Emergency (ER) | payer BC ==
[~2017-07-07 14:08] MED LIST changes: +AMOX-362 PO; +CLAR-1 PO; +LOR5/325 PO; +SUCR1TAB85 PO
[2017-07-07] MEDS ORDERED: NS(*) 0.9% 1000 ML BAG 1,000 ML IV ONE ×2 (14:17→15:20)
--- NOTE | 2017-07-07 14:17 | ER Report ---
History and Physical Time Seen By MD: 14:16 Hx. of Stated Complaint: Vomitting for 4 hours after ingestion of two hotdogs (RAFAEL SOTO MD) HPI/ROS CHIEF COMPLAINT: Vomiting HISTORY OF PRESENT ILLNESS: Patient is a 22-year-old male who presents to the emergency department stating that he's been having intractable vomiting and epigastric pain that began approximately 3-4 hours ago after consuming 2 hot dogs at the [employer] station. Patient was seen 05/20/2017 for similar episode at that time he was diagnosed with H. pylori gastritis placed on H. pylori treatment and was given a referral to Dr. Reynoso for follow-up. He states he nearly completed all of the antibiotics but his symptoms had resolved to stop taking them and he did not actually follow up with Dr. Reynoso. Patient denies any fevers or chills. Denies chest pain or shortness of breath. Patient has been having episodes of retching vomit. Eyes any black tarry stools. Denies any recent antibiotics. Denies any recent travel history. REVIEW OF SYSTEMS: Constitutional: No fever, no chills. ENT: No sore throat. Cardiovascular: No chest pain, no palpitations. Respiratory: No cough, no shortness of breath. Gastrointestinal: No abdominal pain, no vomiting. Genitourinary: No hematuria. Musculoskeletal: No back pain. Skin: No rashes. Neurological: No headache. (RAFAEL SOTO MD) Allergies: Coded Allergies: montelukast (Verified Allergy, Mild, RASH, 07/07/17) Home Meds Active Scripts Ondansetron (ZOFRAN ODT) 4 Mg Tab.rapdis, 4 MG PO Q8H Y for NAUSEA, #20 TAB 0 Refills TAKE 1 TABLET BY MOUTH EVERY 12 HOURS Prov:RAFAEL SOTO MD 07/07/17 Pantoprazole Sodium (PANTOPRAZOLE SODIUM) 40 Mg Tablet.dr, 40 MG PO BID, #60 TAB.SR 0 Refills Prov:RAFAEL SOTO MD 07/07/17 Discontinued Scripts Omeprazole (OMEPRAZOLE) 20 Mg Capsule., 1 CAP PO BID, #60 CAP 0 Refills Prov:SRI WAYNE MD 05/20/17 Clarithromycin (CLARITHROMYCIN) 500 Mg Tablet, 500 MG PO BID for 14 Days, #28 TAB 0 Refills Prov:RSI WAYNE MD 05/20/17 Amoxicillin (AMOXICILLIN) 500 Mg Capsule, 2 CAP PO BID for 14 Days, #56 CAPSULE 0 Refills Prov:SRI WAYNE MD 05/20/17 Ondansetron (ZOFRAN ODT) 4 Mg Tab.rapdis, 4 MG PO Q6H Y for NAUSEA/VOMITING, # 20 TAB.JIM 0 Refills Prov:SRI WAYNE MD 05/20/17 Hydrocodone Bit/Acetaminophen (HYDROCODON-ACETAMINOPHEN 5-325) 1 Each Tablet, 1 EACH PO Q4H Y for PAIN, #12 TAB 0 Refills Prov:SRI WAYNE MD 05/20/17 Sucralfate (CARAFATE) 1 Gm Tablet, 1 GM PO QID, #120 TAB 0 Refills Prov:SRI WAYNE MD 05/20/17 Omeprazole (OMEPRAZOLE) 20 Mg Capsule.dr, 1 CAP PO BID for 14 Days, CAP Prov:NGA JOSEPH MD 03/14/17 Metronidazole (METRONIDAZOLE) 500 Mg Tablet, 500 MG PO QID for 14 Days, TAB Prov:NGA JOSEPH MD 03/14/17 Tetracycline Hcl (TETRACYCLINE HCL) 500 Mg Capsule, 500 MG PO QID for 14 Days, CAPSULE Prov:NGA JOSEPH MD 03/14/17 Cephalexin 500 Mg Tab (KEFLEX 500 MG TAB) 500 Mg Tablet, 500 MG PO Q6H, #28 TAB Prov:DEANNA LEW [employer]ER 03/13/17 Past Medical/Surgical History History of H. pylori gastritis, partially treated (RAFAEL SOTO MD) Hx Substance Use Disorder: No Hx Alcohol Use: No (RAFAEL SOTO MD) Constitutional Vital Sign - Last 24 Hours 07/07/17 07/07/17 07/07/17 07/07/17 14:12 14:15 14:30 14:45 Pulse 102 95 82 73 Resp 16 B/P (MAP) 142/93 152/113 (126) 145/99 (114) 130/115 (120) Pulse Ox 97 99 95 100 O2 Delivery Room Air 07/07/17 07/07/17 07/07/17 07/07/17 15:00 15:15 15:30 15:45 Pulse 86 84 88 84 B/P (MAP) 142/101 (115) 129/101 (110) 137/113 (121) 145/92 (109) Pulse Ox 99 99 94 91 07/07/17 07/07/17 07/07/17 07/07/17 16:00 16:15 16:30 16:45 B/P (MAP) 143/89 (107) 140/83 (102) 132/94 (107) 139/79 (99) Pulse Ox 98 O2 Delivery Room Air 07/07/17 07/07/17 17:00 17:05 Pulse 86 B/P (MAP) 134/94 (107) Pulse Ox 97 Intake and Output 07/07/17 07/07/17 07/08/17 15:00 23:00 07:00 Intake Total 2000 ml Balance 2000 ml (LAURORA,NI V DO) Physical Exam General Appearance: The patient is alert, has no immediate need for airway protection and no signs of toxicity. Eyes: Conjunctivae are clear ENT, Mouth: Mucous membranes are moist. Respiratory: There are no retractions, lungs are clear to auscultation. Cardiovascular: Regular rate and rhythm. Gastrointestinal: Patient has epigastric discomfort to palpation without guarding or rebound tenderness. Neurological: Awake and alert Skin: Warm and dry, no rashes. Musculoskeletal: Neck is supple non tender. Extremities are nontender, nonswollen and have full range of motion. (RAFAEL SOTO MD) Medical Decision Making Data Points Result Diagram: 07/07/17 1416 07/07/17 1416 Laboratory Hematology Test 07/07/17 14:16 Red Blood Count 5.80 M/uL (4.00-5.60) Mean Corpuscular Volume 92.7 fL (80.0-96.0) Mean Corpuscular Hemoglobin 31.9 pg (26.0-33.0) Mean Corpuscular Hemoglobin Concent 34.5 g/dL (32.0-36.0) Red Cell Distribution Width 14.0 % (11.5-14.5) Mean Platelet Volume 7.4 fL (7.2-11.1) Neutrophils (%) (Auto) 71.1 % (39.4-72.5) Lymphocytes (%) (Auto) 22.8 % (17.6-49.6) Monocytes (%) (Auto) 3.6 % (4.1-12.4) Eosinophils (%) (Auto) 1.8 % (0.4-6.7) Basophils (%) (Auto) 0.7 % (0.3-1.4) Nucleated RBC Relative Count (auto) 0.0 /100WBC Neutrophils # (Auto) 8.6 K/uL (2.0-7.4) Lymphocytes # (Auto) 2.8 K/uL (1.3-3.6) Monocytes # (Auto) 0.4 K/uL (0.3-1.0) Eosinophils # (Auto) 0.2 K/uL (0.0-0.5) Basophils # (Auto) 0.1 K/uL (0.0-0.1) Nucleated RBC Absolute Count (auto) 0.01 K/uL Peripheral Blood Smear No Y/N Sodium Level 141 mmol/L (137-145) Potassium Level 3.4 mmol/L (3.5-5.0) Chloride Level 98 mmol/L (98-107) Carbon Dioxide Level 24 mmol/L (22-30) Blood Urea Nitrogen 8 mg/dl (9-21) Creatinine 1.20 mg/dl (0.66-1.25) Glomerular Filtration Rate Calc > 60.0 Random Glucose 122 mg/dl (75-110) Calcium Level 10.4 mg/dl (8.4-10.2) Total Bilirubin 0.7 mg/dl (0.2-1.3) Aspartate Amino Transf (AST/SGOT) 35 U/L (0-35) Alanine Aminotransferase (ALT/SGPT) 20 U/L (0-56) Alkaline Phosphatase 82 U/L (0-126) Total Protein 8.4 gm/dl (6.3-8.2) Albumin 4.9 g/dl (3.5-5.0) Lipase 163 U/L (23-300) Helicobacter pylori IgG Antibody Positive (NEGATIVE) Chemistry Test 07/07/17 14:16 White Blood Count 12.1 k/uL (4.5-11.0) Red Blood Count 5.80 M/uL (4.00-5.60) Hemoglobin 18.5 g/dL (14.0-18.0) Hematocrit 53.8 % (42.0-52.0) Mean Corpuscular Volume 92.7 fL (80.0-96.0) Mean Corpuscular Hemoglobin 31.9 pg (26.0-33.0) Mean Corpuscular Hemoglobin Concent 34.5 g/dL (32.0-36.0) Red Cell Distribution Width 14.0 % (11.5-14.5) Platelet Count 281 K/uL (150-450) Mean Platelet Volume 7.4 fL (7.2-11.1) Neutrophils (%) (Auto) 71.1 % (39.4-72.5) Lymphocytes (%) (Auto) 22.8 % (17.6-49.6) Monocytes (%) (Auto) 3.6 % (4.1-12.4) Eosinophils (%) (Auto) 1.8 % (0.4-6.7) Basophils (%) (Auto) 0.7 % (0.3-1.4) Nucleated RBC Relative Count (auto) 0.0 /100WBC Neutrophils # (Auto) 8.6 K/uL (2.0-7.4) Lymphocytes # (Auto) 2.8 K/uL (1.3-3.6) Monocytes # (Auto) 0.4 K/uL (0.3-1.0) Eosinophils # (Auto) 0.2 K/uL (0.0-0.5) Basophils # (Auto) 0.1 K/uL (0.0-0.1) Nucleated RBC Absolute Count (auto) 0.01 K/uL Peripheral Blood Smear No Y/N Glomerular Filtration Rate Calc > 60.0 Calcium Level 10.4 mg/dl (8.4-10.2) Total Bilirubin 0.7 mg/dl (0.2-1.3) Aspartate Amino Transf (AST/SGOT) 35 U/L (0-35) Alanine Aminotransferase (ALT/SGPT) 20 U/L (0-56) Alkaline Phosphatase 82 U/L (0-126) Total Protein 8.4 gm/dl (6.3-8.2) Albumin 4.9 g/dl (3.5-5.0) Lipase 163 U/L (23-300) Helicobacter pylori IgG Antibody Positive (NEGATIVE) (NI STARR DO) ED Course/Re-evaluation Clinical Indication for ER IV: Hydration, IV Access ED Course 07/07/2017 2:30:24 pm plan at this time I will be to perform an abdominal workup we will give IV hydration and Zofran. We will check CBC CMP lipase and repeat H. pylori testing Re-evaluation 07/07/2017 2:45:27 pm patient no better after IV Zofran and Protonix still having discomfort. We'll give 4 mg of IV morphine and 25 mg of Phenergan. Decision to Disposition Date: July 07, 2017 Decision to Disposition Time: 17:00 (RAFAEL SOTO MD) Clinical Indication for ER IV: Hydration, IV Access ED Course 07/07/2017 3:59:48 pm Pt signed out to me pending completion of initial liter of fluid. pt was still vomiting after that liter. I started a second liter and gave reglan 10mg iv. Pt is no longer vomiting but is sleeping. Pt was seen for similar symptoms in may. Pt was to follow up with surgery for egd but did not. Pt had a ct at that time which showed nothing acute. Similar clinical picture today so will hold of imaging. Pt will require close follow up with surgery for egd and possible bx . 07/07/2017 4:42:38 pm Pt has been sleeping the last 30 minutes. woke him up to review his labs and to reexamine. pt still feels nauseated. No active vomiting but had some motions of dry heaving. pt states that he will follow up with surgery this time. 07/07/2017 4:54:09 pm PT has a friend who can pick him up. will d/c home with two zofran. pt states he did not need a work note. Decision to Disposition Date: July 07, 2017 Decision to Disposition Time: 16:54 (NI STARR DO) Depart Departure Latest Vital Signs Vital Signs Date Time Temp Pulse Resp B/P (MAP) Pulse Ox O2 Delivery O2 Flow Rate FiO2 07/07/17 17:05 86 97 07/07/17 17:00 134/94 (107) 07/07/17 16:45 Room Air 07/07/17 14:12 16 (NI STARR DO) Impression: Primary Impression: Epigastric pain Additional Impression: Nausea & vomiting Condition: Improved Disposition: HOME OR SELF-CARE Referrals: TRANG SCHMID MD 2 Days Call to schedule a follow up appointment for further evaluation of your abdominal pain. New Scripts Ondansetron (ZOFRAN ODT) 4 Mg Tab.rapdis 4 MG PO Q8H Y for NAUSEA, #20 TAB 0 Refills TAKE 1 TABLET BY MOUTH EVERY 12 HOURS Prov: RAFAEL SOTO MD 07/07/17 Pantoprazole Sodium (PANTOPRAZOLE SODIUM) 40 Mg Tablet.dr 40 MG PO BID, #60 TAB.SR 0 Refills Prov: RAFAEL SOTO MD 07/07/17 Patient Instructions: Acute Nausea and Vomiting (GEN), Helicobacter Pylori (GEN ) Additional Instructions: It is very important that you follow up with surgery to have further evaluation of your H. Pylori and possible endoscopy/scope. You have scripts at your pharmacy for the nausea and to treat any possible ulcer. Problem Qualifiers Additional Impression: Nausea & vomiting Vomiting type: unspecified Vomiting Intractability: non-intractable Qualified Codes: R11.2 - Nausea with vomiting, unspecified RAFAEL SOTO MD July 07, 2017 14:17 NI STARR DO July 07, 2017 16:02
[2017-07-07] MEDS ORDERED: ONDANSETRON 4 MG/2 ML VIAL IVP ONE (14:20)
[2017-07-07] MEDS ORDERED: PANTOPRAZOLE SOD 40 MG IV VIAL IVP ONE (14:20)
[2017-07-07 14:25] LABS: PLATELET COUNT, AUTOMATED 281 K/uL (150-450)
[2017-07-07] MEDS ORDERED: PROMETHAZINE 25 MG/ML 1 ML AMP IVP ONE (14:45)
[2017-07-07] MEDS ORDERED: MORPHINE 4 MG/ML SDV IVP ONE (14:45)
[2017-07-07] MEDS ORDERED: ONDA4TAB PO (14:53)
[2017-07-07] MEDS ORDERED: PANT40TA65 PO (14:53)
[2017-07-07] MEDS ORDERED: METOCLOPRAMIDE 10 MG/2 ML SDV IVP ONE (15:20)
[2017-07-07] MEDS ORDERED: ONDANSETRON 4 MG ODT TH SL ONE (16:55)
[2017-07-07 17:00] VITALS: BP 134/94
== END 2017-07-07 17:21 | disposition home or self-care (01) ==
LOC: ER 14:10
DX: R10.13 Epigastric pain (principal); R11.2 Nausea with vomiting, unspecified
CPT/HCPCS: 83690; 85025; 86677; 96361; 96374; 96375; 99284; C9113; J2270; J2405; J2550; J2765; J7030; S0119; 82040; 82247; 82310; 82374; 82435; 82565; 82947; 84075; 84132; 84155; 84295; 84450; 84460; 84520

== ENCOUNTER 2018-01-06 20:32 | Emergency (ER) | payer BC ==
[~2018-01-06 20:32] MED LIST changes: +PANT40TA65 PO; -TETR-30 PO; +TETR500C2 PO
--- NOTE | 2018-01-06 20:34 | ER Report ---
History and Physical Time Seen By MD: 20:34 HPI/ROS CHIEF COMPLAINT: Vomiting, abdominal pain HISTORY OF PRESENT ILLNESS: 22-year-old male presents ambulatory to the ER complaining of vomiting since 6 PM. Patient ate steak for lunch. Patient denies diarrhea. He denies exposure to ill contacts. He notes 6/10 epigastric pain with radiation to his back. He notes no alleviating or worsening factors. Patient has a history of H. pylori. He was treated previously. Patient was advised to follow-up for endoscopy. He has not. He states he had an endoscopy 2 years ago. REVIEW OF SYSTEMS: Respiratory: No cough, no dyspnea. Cardiovascular: No chest pain, no palpitations. Gastrointestinal: As above Musculoskeletal: No back pain. Allergies: Coded Allergies: montelukast (Verified Allergy, Mild, RASH, 01/06/18) Home Meds Active Scripts Promethazine Hcl (PROMETHAZINE HCL) 25 Mg Tablet, 25 MG PO Q4H PRN for NAUSEA/VOMITING, #14 TAB Prov:LIUWESTON DO 01/07/18 Ondansetron (ZOFRAN ODT) 4 Mg Tab.rapdis, 4 MG PO every 6 hours PRN for NAUSEA/VOMITING, #10 TAB TAKE 1 TABLET BY MOUTH EVERY 12 HOURS Prov:WESTON HATFIELD DO 01/07/18 Ondansetron (ZOFRAN ODT) 4 Mg Tab.rapdis, 4 MG PO Q8H PRN for NAUSEA, #20 TAB 0 Refills TAKE 1 TABLET BY MOUTH EVERY 12 HOURS Prov:RAFAEL SOTO MD 07/07/17 Discontinued Scripts Pantoprazole Sodium (PANTOPRAZOLE SODIUM) 40 Mg Tablet.dr, 40 MG PO BID, #60 TAB.SR 0 Refills Prov:RAFAEL SOTO MD 07/07/17 Past Medical/Surgical History H. pylori, GERD Reviewed Nurses Notes: Yes Old Medical Records Reviewed: Yes Hx Substance Use Disorder: No Hx Alcohol Use: No Constitutional Vital Sign - Last 24 Hours 01/06/18 01/06/18 01/06/18 01/06/18 20:36 20:37 21:02 21:07 Temp 98.3 Pulse 63 51 61 Resp 17 B/P (MAP) 147/104 147/104 (118) Pulse Ox 99 97 95 O2 Delivery Room Air 01/06/18 01/06/18 01/06/182/18 21:19 21:30 21:37 21:42 Pulse 57 73 B/P (MAP) 134/98 (110) 142/99 (113) Pulse Ox 97 98 01/06/18 01/06/18 01/06/18 01/06/18 22:00 22:30 22:35 23:00 Pulse 80 B/P (MAP) 130/79 (96) 120/89 (99) 122/63 (82) Pulse Ox 92 01/06/18 01/07/18 01/07/18 01/07/18 23:30 00:00 00:30 01:00 B/P (MAP) 119/96 (104) 119/67 (84) 118/59 (78) 126/63 (84) 01/07/18 01/07/18 01/07/18 01/07/18 01:30 02:00 02:30 03:00 B/P (MAP) 128/67 (87) 123/68 (86) 125/79 (94) 128/72 (90) Physical Exam Vital signs stable, tachycardic General Appearance: The patient is alert, has no immediate need for airway protection and no current signs of toxicity., Pale appearing, skin cool and dry HEENT: Pupils equal and round no injection. Oropharynx with moderate erythema, mucous. Membranes are moist Respiratory: Chest is non tender, lungs are clear to auscultation. Cardiac: regular rate and rhythm Gastrointestinal: Abdomen is soft moderate epigastric tenderness, no rebound or guarding, no masses, bowel sounds normal. Musculoskeletal: Neck: Neck is supple and non tender. No lymphadenopathy Extremities have full range of motion and are non tender. Skin: No rashes or lesions. DIFFERENTIAL DIAGNOSIS: After history and physical exam differential diagnosis was considered for abdominal pain including but not limited to appendicitis, cholecystitis, gastritis, gastroenteritis, food poisoning, viral syndrome and urinary tract infection. Medical Decision Making Data Points Result Diagram: 01/06/18203901/06/182039 Laboratory Hematology Test 01/06/18 20:40 01/06/18 22:27 Red Blood Count 5.84 M/uL (4.00-5.60) Mean Corpuscular Volume 92.0 fL (80.0-96.0) Mean Corpuscular Hemoglobin 31.6 pg (26.0-33.0) Mean Corpuscular Hemoglobin Concent 34.4 g/dL (32.0-36.0) Red Cell Distribution Width 13.3 % (11.5-14.5) Mean Platelet Volume 7.5 fL (7.2-11.1) Neutrophils (%) (Auto) 86.3 % (39.4-72.5) Lymphocytes (%) (Auto) 9.8 % (17.6-49.6) Monocytes (%) (Auto) 3.1 % (4.1-12.4) Eosinophils (%) (Auto) 0.3 % (0.4-6.7) Basophils (%) (Auto) 0.5 % (0.3-1.4) Nucleated RBC Relative Count (auto) 0.1 /100WBC Neutrophils # (Auto) 17.2 K/uL (2.0-7.4) Lymphocytes # (Auto) 1.9 K/uL (1.3-3.6) Monocytes # (Auto) 0.6 K/uL (0.3-1.0) Eosinophils # (Auto) 0.1 K/uL (0.0-0.5) Basophils # (Auto) 0.1 K/uL (0.0-0.1) Nucleated RBC Absolute Count (auto) 0.02 K/uL Sodium Level 141 mmol/L (137-145) Potassium Level 4.0 mmol/L (3.5-5.0) Chloride Level 99 mmol/L (98-107) Carbon Dioxide Level 24 mmol/L (22-30) Blood Urea Nitrogen 18 mg/dl (9-21) Creatinine 1.40 mg/dl (0.66-1.25) Glomerular Filtration Rate Calc > 60.0 Random Glucose 130 mg/dl (75-110) Calcium Level 10.7 mg/dl (8.4-10.2) Total Bilirubin 1.1 mg/dl (0.2-1.3) Aspartate Amino Transf (AST/SGOT) 55 U/L (0-35) Alanine Aminotransferase (ALT/SGPT) 53 U/L (0-56) Alkaline Phosphatase 84 U/L (0-126) Total Protein 9.4 g/dl (6.3-8.2) Albumin 5.1 g/dl (3.5-5.0) Amylase Level 116 U/L (0-110) Lipase 115 U/L (23-300) Urine Color Yellow Urine Clarity Clear Urine pH 7.0 pH (4.8-9.5) Urine Specific [place] 1.035 Urine Protein 30 mg/dL (NEGATIVE) Urine Glucose (UA) Negative mg/dL (NEGATIVE) Urine Ketones 80 mg/dL (NEGATIVE) Urine Blood Negative (NEGATIVE) Urine Nitrite Negative (NEGATIVE) Urine Bilirubin Negative (NEGATIVE) Urine Urobilinogen Negative mg/dL (0.2-1.9) Urine Leukocyte Esterase Negative (NEGATIVE) Urine RBC 2 /HPF (0-2/HPF) Urine WBC <1 /HPF (0-5/HPF) Urine Squamous Epithelial Cells None /LPF (</=FEW) Urine Bacteria Negative /HPF (NONE-FEW) Urine Hyaline Casts Few /LPF (NONE-FEW) Urine Mucus Few /HPF (NONE-FEW) Urine Opiates Screen Negative Urine Barbiturates Screen Negative Ur Tricyclic Antidepressants Screen Negative Urine Phencyclidine Screen Negative Urine Amphetamines Screen Negative Urine Benzodiazepines Screen Negative Urine Cocaine Screen Negative Urine Cannabinoids Screen Positive Chemistry Test 01/06/18 20:40 01/06/18 22:27 White Blood Count 19.9 k/uL (4.5-11.0) Red Blood Count 5.84 M/uL (4.00-5.60) Hemoglobin 18.5 g/dL (14.0-18.0) Hematocrit 53.7 % (42.0-52.0) Mean Corpuscular Volume 92.0 fL (80.0-96.0) Mean Corpuscular Hemoglobin 31.6 pg (26.0-33.0) Mean Corpuscular Hemoglobin Concent 34.4 g/dL (32.0-36.0) Red Cell Distribution Width 13.3 % (11.5-14.5) Platelet Count 247 K/uL (150-450) Mean Platelet Volume 7.5 fL (7.2-11.1) Neutrophils (%) (Auto) 86.3 % (39.4-72.5) Lymphocytes (%) (Auto) 9.8 % (17.6-49.6) Monocytes (%) (Auto) 3.1 % (4.1-12.4) Eosinophils (%) (Auto) 0.3 % (0.4-6.7) Basophils (%) (Auto) 0.5 % (0.3-1.4) Nucleated RBC Relative Count (auto) 0.1 /100WBC Neutrophils # (Auto) 17.2 K/uL (2.0-7.4) Lymphocytes # (Auto) 1.9 K/uL (1.3-3.6) Monocytes # (Auto) 0.6 K/uL (0.3-1.0) Eosinophils # (Auto) 0.1 K/uL (0.0-0.5) Basophils # (Auto) 0.1 K/uL (0.0-0.1) Nucleated RBC Absolute Count (auto) 0.02 K/uL Glomerular Filtration Rate Calc > 60.0 Calcium Level 10.7 mg/dl (8.4-10.2) Total Bilirubin 1.1 mg/dl (0.2-1.3) Aspartate Amino Transf (AST/SGOT) 55 U/L (0-35) Alanine Aminotransferase (ALT/SGPT) 53 U/L (0-56) Alkaline Phosphatase 84 U/L (0-126) Total Protein 9.4 g/dl (6.3-8.2) Albumin 5.1 g/dl (3.5-5.0) Amylase Level 116 U/L (0-110) Lipase 115 U/L (23-300) Urine Color Yellow Urine Clarity Clear Urine pH 7.0 pH (4.8-9.5) Urine Specific [place] 1.035 Urine Protein 30 mg/dL (NEGATIVE) Urine Glucose (UA) Negative mg/dL (NEGATIVE) Urine Ketones 80 mg/dL (NEGATIVE) Urine Blood Negative (NEGATIVE) Urine Nitrite Negative (NEGATIVE) Urine Bilirubin Negative (NEGATIVE) Urine Urobilinogen Negative mg/dL (0.2-1.9) Urine Leukocyte Esterase Negative (NEGATIVE) Urine RBC 2 /HPF (0-2/HPF) Urine WBC <1 /HPF (0-5/HPF) Urine Squamous Epithelial Cells None /LPF (</=FEW) Urine Bacteria Negative /HPF (NONE-FEW) Urine Hyaline Casts Few /LPF (NONE-FEW) Urine Mucus Few /HPF (NONE-FEW) Urine Opiates Screen Negative Urine Barbiturates Screen Negative Ur Tricyclic Antidepressants Screen Negative Urine Phencyclidine Screen Negative Urine Amphetamines Screen Negative Urine Benzodiazepines Screen Negative Urine Cocaine Screen Negative Urine Cannabinoids Screen Positive Toxicology Test 01/06/18 22:27 Urine Opiates Screen Negative Urine Barbiturates Screen Negative Ur Tricyclic Antidepressants Screen Negative Urine Phencyclidine Screen Negative Urine Amphetamines Screen Negative Urine Benzodiazepines Screen Negative Urine Cocaine Screen Negative Urine Cannabinoids Screen Positive Urinalysis Test 01/06/18 22:27 Urine Color Yellow Urine Clarity Clear Urine pH 7.0 pH (4.8-9.5) Urine Specific [place] 1.035 Urine Protein 30 mg/dL (NEGATIVE) Urine Glucose (UA) Negative mg/dL (NEGATIVE) Urine Ketones 80 mg/dL (NEGATIVE) Urine Blood Negative (NEGATIVE) Urine Nitrite Negative (NEGATIVE) Urine Bilirubin Negative (NEGATIVE) Urine Urobilinogen Negative mg/dL (0.2-1.9) Urine Leukocyte Esterase Negative (NEGATIVE) Urine RBC 2 /HPF (0-2/HPF) Urine WBC <1 /HPF (0-5/HPF) Urine Squamous Epithelial Cells None /LPF (</=FEW) Urine Bacteria Negative /HPF (NONE-FEW) Urine Hyaline Casts Few /LPF (NONE-FEW) Urine Mucus Few /HPF (NONE-FEW) EKG/Imaging Imaging Results: CT scan of the abdomen and pelvis with IV contrast was obtained. The results of the study are ABDOMEN/PELVIS WITH CONTRAST Additional pertinent History: Severe abdominal pain. TECHNIQUE: Spiral scan was through the abdomen and pelvis during injection of nonionic iodinated intravenous contrast. Contrast: 100 mL of IV [id number]. One of the following dose optimization techniques was utilized in the performance of this exam: Automated exposure control; adjustment of the mA and/or kV according to the patient's size; or use of an iterative reconstruction technique. Specific details can be referenced in the facility's radiology CT exam operational policy. COMPARISON STUDIES: none. FINDINGS: Liver / biliary: Liver is homogenous with no focal liver lesions. Gallbladder unremarkable with no gallstones. Pancreas: negative Spleen: negative Adrenal glands: negative Kidneys / retroperitoneum: No renal stone or renal obstructive uropathy change. Pelvic structures: negative Bowel / peritoneum / mesenteries: Appendix normal with no evidence of appendicitis. No free fluid. Visualized colon without inflammation. Vessels: negative Musculoskeletal / Body wall: negative Lymph node assessment: negative Lower chest: negative IMPRESSION: 1. Negative CT scan of the abdomen/pelvis. Specifically no evidence of appendicitis. The study was read by the radiologist. Vilma viewed the images myself on the PACS system. ED Course/Re-evaluation Clinical Indication for ER IV: Hydration, IV Access ED Course Patient was admitted to an examination room. H&P was done. The dental diagnoses was considered. Patient with significantly tender epigastrium. He is quite pale and tachycardic. He is aggressively fluid rehydrated. He is treated with Zofran, Phenergan, IV. He continues to have emesis. He is given Reglan 10 mg. Review of his old records show that he has trouble with control of his emesis with multiple medications. Repeat Zofran was administered. Fentanyl 50 mg was administered. Patient's diagnostic studies returned with a white blood cell count of nearly 20,000. A CT scan of the abdomen and pelvis is performed to rule out serious pathology. Review of patient's records show previous white blood cell count of 21,000 in March of this year. Patient continues to have trouble with emesis. He is aggressively hydrated with 2 more liters of fluid. A tox screen is added to his urine. He has positive cannabis. He may have cannabis hyperemesis syndrome. I am suspicious some of his other ER presentations are of this nature. He finally feels well enough to try some oral fluids and ambulate to the bathroom. Patient's discharged home with Zofran and Phenergan to control his vomiting. He is advised clear liquid diet for 24 hours. Decision to Disposition Date: Jan 07, 2018 Decision to Disposition Time: 02:31 Depart Departure Latest Vital Signs Vital Signs Date Time Temp Pulse Resp B/P (MAP) Pulse Ox O2 Delivery O2 Flow Rate FiO2 01/07/18 03:00 128/72 (90) 01/06/18 22:35 80 92 01/06/18 20:36 98.3 17 Room Air Impression: Primary Impression: Nausea & vomiting Additional Impression: Abdominal pain Condition: Improved Disposition: HOME OR SELF-CARE Referrals: SONYA ALEXANDRA MD New Scripts Promethazine Hcl (PROMETHAZINE HCL) 25 Mg Tablet 25 MG PO Q4H PRN for NAUSEA/VOMITING, #14 TAB Prov: WESTON HATFIELD DO 01/07/18 Ondansetron (ZOFRAN ODT) 4 Mg Tab.rapdis 4 MG PO every 6 hours PRN for NAUSEA/VOMITING, #10 TAB TAKE 1 TABLET BY MOUTH EVERY 12 HOURS Prov: WESTON HATFIELD DO 01/07/18 Patient Instructions: Acute Nausea and Vomiting (ED), Clear Liquid Diet (ED) Additional Instructions: Follow clear liquid diet for 24-48 hours Follow-up with primary care if unimproved in 3-5 days Problem Qualifiers Primary Impression: Nausea & vomiting Vomiting type: unspecified Vomiting Intractability: intractable Qualified Codes: R11.2 - Nausea with vomiting, unspecified Additional Impression: Abdominal pain Abdominal location: epigastric Qualified Codes: R10.13 - Epigastric pain WESTON HATFIELD DO Jan 06, 2018 20:34
[2018-01-06] MEDS ORDERED: NS(*) 0.9% 1000 ML BAG 1,000 ML IV ONE ×3 (20:40→23:10)
[2018-01-06] MEDS ORDERED: fentaNYL CITR 100 MCG/2 ML AMP IVP ONE (20:40)
[2018-01-06] MEDS ORDERED: ONDANSETRON 4 MG/2 ML VIAL IVP ONE ×2 (20:40→23:10)
[2018-01-06 20:53] LABS: PLATELET COUNT, AUTOMATED 247 K/uL (150-450)
[2018-01-06] MEDS ORDERED: PROMETHAZINE 25 MG/ML 1 ML AMP IVP ONE (21:15)
[2018-01-06] MEDS ORDERED: METOCLOPRAMIDE 10 MG/2 ML SDV IVP ONE (21:50)
[2018-01-06] MEDS ORDERED: IOPAMIDOL 76% 75 ML INFUS BTL 75 ML ONE (21:59)
--- NOTE | 2018-01-06 22:59 | RADIOLOGY IMAGING REPORT ---
FACILITY: [facility] PATIENT NAME: Rei Roberto : 1995 MR: [id number] V: [id number] EXAM DATE: ORDERING PHYSICIAN: WESTON HATFIELD TECHNOLOGIST: Location: [facility] - [place] Patient: Rei Roberto : 1995 Visit/Account:[id number] Date of Sevice: 01/06/2018 ABDOMEN/PELVIS WITH CONTRAST Additional pertinent History: Severe abdominal pain. TECHNIQUE: Spiral scan was through the abdomen and pelvis during injection of nonionic iodinated in travenous contrast. Contrast: 100 mL of IV Isovue-370. One of the following dose optimization techniques was utilized in the performance of this exam: Autom ated exposure control; adjustment of the mA and/or kV according to the patient's size; or use of an i terative reconstruction technique. Specific details can be referenced in the facility's radiology C T exam operational policy. COMPARISON STUDIES: none. FINDINGS: Liver / biliary: Liver is homogenous with no focal liver lesions. Gallbladder unremarkable with no g allstones. Pancreas: negative Spleen: negative Adrenal glands: negative Kidneys / retroperitoneum: No renal stone or renal obstructive uropathy change. Pelvic structures: negative Bowel / peritoneum / mesenteries: Appendix normal with no evidence of appendicitis. No free fluid. Visualized colon without inflammation. Vessels: negative Musculoskeletal / Body wall: negative Lymph node assessment: negative Lower chest: negative IMPRESSION: 1. Negative CT scan of the abdomen/pelvis. Specifically no evidence of appendicitis. Report Dictated By: Reynold Galloway MD at 01/06/2018 10:42 PM Report E-Signed By: Reynold Galloway MD at 01/06/2018 10:56 PM WSN:[email or web address]
[2018-01-06] MEDS ORDERED: PANTOPRAZOLE SOD(*)40 MG VIAL 80 MG in NS(*) 0.9% 100 ML BAG 100 ML IVPB ONE (23:15)
[2018-01-07 03:00] VITALS: BP 128/72
[2018-01-07] MEDS ORDERED: ONDANSETRON 4 MG ODT TH SL ONE (03:05)
[2018-01-07] MEDS ORDERED: PROMETHAZINE HCL 25 MG TAB TH 2 TAB/BOTTLE PO ONE (03:05)
[2018-01-07] MEDS ORDERED: PROM-110 PO (03:06)
[2018-01-07] MEDS ORDERED: ONDA4TAB PO (03:06)
== END 2018-01-07 03:21 | disposition home or self-care (01) ==
LOC: ER 20:45
DX: R11.2 Nausea with vomiting, unspecified (principal); R10.13 Epigastric pain; F12.10 Cannabis abuse, uncomplicated
CPT/HCPCS: 74177; 80305; 81001; 82150; 83690; 85025; 96361; 96365; 96375; 96376; 99284; C9113; J2405; J2550; J2765; J3010; J7030; J7050; Q9967; S0119; 82040; 82247; 82310; 82374; 82435; 82565; 82947; 84075; 84132; 84155; 84295; 84450; 84460; 84520

== ENCOUNTER 2018-02-02 13:52 | Emergency (ER) | payer BC ==
[~2018-02-02 13:52] MED LIST changes: -METR-160 PO; +METR500T54 PO; +PROM-110 PO
[2018-02-02] MEDS ORDERED: ONDANSETRON 4 MG/2 ML VIAL ONE (14:36)
[2018-02-02] MEDS ORDERED: PROMETHAZINE 25 MG/ML 1 ML AMP IVP ONE (14:45)
[2018-02-02] MEDS ORDERED: NS(*) 0.9% 1000 ML BAG 1,000 ML IV ONE ×2 (14:45→15:55)
[2018-02-02] MEDS ORDERED: MORPHINE 2 MG/ML SYR IVP ONE (14:50)
[2018-02-02 15:13] LABS: PLATELET COUNT, AUTOMATED 221 K/uL (150-450)
--- NOTE | 2018-02-02 15:54 | RADIOLOGY IMAGING REPORT ---
FACILITY: [facility] PATIENT NAME: Rei Roberto : 1995 MR: [id number] V: [id number] EXAM DATE: ORDERING PHYSICIAN: DEANNA LWE TECHNOLOGIST: Location: [facility] [place] Patient: Rei Roberto : 1995 Visit/Account:[id number] Date of Sevice: 02/02/2018 ACUTE ABDOMEN SERIES 3 VIEW INDICATION: Abdominal pain. COMPARISON: Unavailable FINDINGS: Chest: The heart size is normal. There is no abnormality other lung base. There is no pneumoperit oneum. Abdomen: There are no dilated loops of large or small bowel to suggest ileus or obstruction. There is fecal material in the rectum and sigmoid colon. IMPRESSION: 1. No active disease in the chest. 2. Nonspecific bowel gas pattern without findings of ileus or obstruction. Report Dictated By: Cole Heath MD at 02/02/2018 3:48 PM Report E-Signed By: Cole Heath MD at 02/02/2018 3:49 PM WSN:[email or web address]
[2018-02-02] MEDS ORDERED: PANTOPRAZOLE SOD(*)40 MG VIAL 80 MG in NS(*) 0.9% 100 ML BAG 100 ML IVPB ONE (15:55)
[2018-02-02] MEDS ORDERED: METOCLOPRAMIDE 10 MG/2 ML SDV IVP ONE (15:55)
[2018-02-02] MEDS ORDERED: METO-734 PO (16:59)
[2018-02-02] MEDS ORDERED: PANT40TA65 PO (16:59)
--- NOTE | 2018-02-02 16:59 | ER Report ---
History and Physical Time Seen By MD: 14:29 Hx. of Stated Complaint: nausea and vomiting with abd pain HPI/ROS CHIEF COMPLAINT: Nausea and vomiting HISTORY OF PRESENT ILLNESS: 23-year-old male patient presents to the emergency room with complaint of nausea and vomiting. Patient states that he has not felt well for today. He states that he ate possibly some bad pizza rolls last night. He denies having any fevers, chills or diarrhea. He states that he has had problems like this in the past. He believes it is likely related to his reflux. Patient states that he has been on Protonix as well as tramadol for this. He st ates that when he has vomiting he has abdominal pain. He states his taken some Phenergan as well as Zofran with no improvement in his symptoms. REVIEW OF SYSTEMS: Respiratory: No cough, no dyspnea. Cardiovascular: No chest pain, no palpitations. Gastrointestinal: As noted above Musculoskeletal: No back pain. Allergies: Coded Allergies: montelukast (Verified Allergy, Mild, RASH, 02/02/18) Home Meds Active Scripts Metoclopramide Hcl (REGLAN) 10 Mg Tablet, 10 MG PO TID PRN for NAUSEA/VOMITING, #15 TAB Prov:DEANNA LEW [facility] 02/02/18 Pantoprazole Sodium (PANTOPRAZOLE SODIUM) 40 Mg Tablet.dr, 40 MG PO QDAY, #30 TAB.SR Prov:DEANNA LEW [facility] 02/02/18 Promethazine Hcl (PROMETHAZINE HCL) 25 Mg Tablet, 25 MG PO Q4H PRN for NAUSEA/VOMITING, #14 TAB Prov:WESTON HATFIELD DO 01/07/18 Ondansetron (ZOFRAN ODT) 4 Mg Tab.rapdis, 4 MG PO every 6 hours PRN for NAUSEA/VOMITING, #10 TAB TAKE 1 TABLET BY MOUTH EVERY 12 HOURS Prov:WESTON HATFIELD DO 01/07/18 Ondansetron (ZOFRAN ODT) 4 Mg Tab.rapdis, 4 MG PO Q8H PRN for NAUSEA, #20 TAB 0 Refills TAKE 1 TABLET BY MOUTH EVERY 12 HOURS Prov:RAFAEL SOTO MD 07/07/17 Past Medical/Surgical History Patient has a past medical history of gastric ulcer, hiatal hernia. Patient has surgical history of endoscopy. Reviewed Nurses Notes: Yes Hx Substance Use Disorder: No Hx Alcohol Use: No Constitutional Vital Sign - Last 24 Hours 02/02/18 02/02/18 02/02/18 02/02/18 13:57 14:22 14:55 15:00 Temp 97.7 Pulse 98 Resp 18 22 B/P (MAP) 142/90 121/94 (103) 134/102 (113) Pulse Ox 97 02/02/18 02/02/18 02/02/18 02/02/18 15:19 15:22 15:24 15:30 Pulse 82 76 Resp 12 11 B/P (MAP) 130/93 (105) 137/97 (110) Pulse Ox 94 95 02/02/18 02/02/18 02/02/18 02/02/18 15:54 16:00 16:05 16:30 Pulse 76 78 Resp 15 23 B/P (MAP) 139/98 (112) 127/83 (98) Pulse Ox 89 02/02/18 02/02/18 02/02/18 16:35 17:00 17:05 Pulse 82 77 Resp 19 13 B/P (MAP) 116/69 (85) Pulse Ox 92 94 Physical Exam General Appearance: The patient is alert, has no immediate need for airway protection and no current signs of toxicity. Respiratory: Chest is non tender, lungs are clear to auscultation. Cardiac: regular rate and rhythm Gastrointestinal: Abdomen is soft and tender, no masses, bowel sounds are hypoactive. Musculoskeletal: Neck: Neck is supple and non tender. Extremities have full range of motion and are non tender. Skin: No rashes or lesions. DIFFERENTIAL DIAGNOSIS: After history and physical exam differential diagnosis was considered for nausea and vomiting including but not limited to gastroen teritis, gastritis, appendicitis, and medication side effect. Medical Decision Making Data Points Result Diagram: 02/02/18 1426 02/02/18 1426 Laboratory Hematology Test 02/02/18 14:26 Red Blood Count 5.44 M/uL (4.00-5.60) Mean Corpuscular Volume 91.2 fL (80.0-96.0) Mean Corpuscular Hemoglobin 31.4 pg (26.0-33.0) Mean Corpuscular Hemoglobin Concent 34.4 g/dL (32.0-36.0) Red Cell Distribution Width 13.3 % (11.5-14.5) Mean Platelet Volume 8.2 fL (7.2-11.1) Neutrophils (%) (Auto) 73.9 % (39.4-72.5) Lymphocytes (%) (Auto) 17.7 % (17.6-49.6) Monocytes (%) (Auto) 5.4 % (4.1-12.4) Eosinophils (%) (Auto) 2.7 % (0.4-6.7) Basophils (%) (Auto) 0.3 % (0.3-1.4) Nucleated RBC Relative Count (auto) 0.0 /100WBC Neutrophils # (Auto) 12.0 K/uL (2.0-7.4) Lymphocytes # (Auto) 2.9 K/uL (1.3-3.6) Monocytes # (Auto) 0.9 K/uL (0.3-1.0) Eosinophils # (Auto) 0.4 K/uL (0.0-0.5) Basophils # (Auto) 0.0 K/uL (0.0-0.1) Nucleated RBC Absolute Count (auto) 0.01 K/uL Sodium Level 140 mmol/L (137-145) Potassium Level 3.7 mmol/L (3.5-5.0) Chloride Level 107 mmol/L (98-107) Carbon Dioxide Level 17 mmol/L (22-30) Blood Urea Nitrogen 18 mg/dl (9-21) Creatinine 1.30 mg/dl (0.66-1.25) Glomerular Filtration Rate Calc > 60.0 Random Glucose 130 mg/dl (75-110) Calcium Level 10.1 mg/dl (8.4-10.2) Total Bilirubin 0.7 mg/dl (0.2-1.3) Aspartate Amino Transf (AST/SGOT) 37 U/L (0-35) Alanine Aminotransferase (ALT/SGPT) 18 U/L (0-56) Alkaline Phosphatase 74 U/L (0-126) Total Protein 8.6 g/dl (6.3-8.2) Albumin 5.0 g/dl (3.5-5.0) Amylase Level 94 U/L (0-110) Lipase 95 U/L (23-300) Helicobacter pylori IgG Antibody Negative (NEGATIVE) Chemistry Test 02/02/18 14:26 White Blood Count 16.2 k/uL (4.5-11.0) Red Blood Count 5.44 M/uL (4.00-5.60) Hemoglobin 17.1 g/dL (14.0-18.0) Hematocrit 49.6 % (42.0-52.0) Mean Corpuscular Volume 91.2 fL (80.0-96.0) Mean Corpuscular Hemoglobin 31.4 pg (26.0-33.0) Mean Corpuscular Hemoglobin Concent 34.4 g/dL (32.0-36.0) Red Cell Distribution Width 13.3 % (11.5-14.5) Platelet Count 221 K/uL (150-450) Mean Platelet Volume 8.2 fL (7.2-11.1) Neutrophils (%) (Auto) 73.9 % (39.4-72.5) Lymphocytes (%) (Auto) 17.7 % (17.6-49.6) Monocytes (%) (Auto) 5.4 % (4.1-12.4) Eosinophils (%) (Auto) 2.7 % (0.4-6.7) Basophils (%) (Auto) 0.3 % (0.3-1.4) Nucleated RBC Relative Count (auto) 0.0 /100WBC Neutrophils # (Auto) 12.0 K/uL (2.0-7.4) Lymphocytes # (Auto) 2.9 K/uL (1.3-3.6) Monocytes # (Auto) 0.9 K/uL (0.3-1.0) Eosinophils # (Auto) 0.4 K/uL (0.0-0.5) Basophils # (Auto) 0.0 K/uL (0.0-0.1) Nucleated RBC Absolute Count (auto) 0.01 K/uL Glomerular Filtration Rate Calc > 60.0 Calcium Level 10.1 mg/dl (8.4-10.2) Total Bilirubin 0.7 mg/dl (0.2-1.3) Aspartate Amino Transf (AST/SGOT) 37 U/L (0-35) Alanine Aminotransferase (ALT/SGPT) 18 U/L (0-56) Alkaline Phosphatase 74 U/L (0-126) Total Protein 8.6 g/dl (6.3-8.2) Albumin 5.0 g/dl (3.5-5.0) Amylase Level 94 U/L (0-110) Lipase 95 U/L (23-300) Helicobacter pylori IgG Antibody Negative (NEGATIVE) EKG/Imaging Imaging ACUTE ABDOMEN SERIES 3 VIEW INDICATION: Abdominal pain. COMPARISON: Unavailable FINDINGS: Chest: The heart size is normal. There is no abnormality other lung base. There is no pneumoperitoneum. Abdomen: There are no dilated loops of large or small bowel to suggest ileus or obstruction. There is fecal material in the rectum and sigmoid colon. IMPRESSION: 1. No active disease in the chest. 2. Nonspecific bowel gas pattern without findings of ileus or obstruction. Report Dictated By: Cole Heath MD at 02/02/2018 3:48 PM Report E-Signed By: Cole Heath MD at 02/02/2018 3:49 PM ED Course/Re-evaluation ED Course Patient was admitted exam room, history and physical were obtained. Differential diagnoses were considered. On examination patient had some abdominal discomfort, bowel sounds were hypoactive, heart is regular. A CBC, CMP, acute abdominal x- ray were done. The labs did show an elevated white count of 16,000. I believe that is likely secondary to stress response. Remainder they look twice were normal. Patient was given a liter of normal saline, was given Zofran. He had persistent nausea and vomiting. Patient was then given a dose of Phenergan. That seemed to help. On reevaluation patient states he still feeling very nauseous. Patient was given a second liter as well as 40 mg of IV Protonix and 10 mg of IV Reglan. On reevaluation patient states he feels significantly better. We will go ahead and discharge patient home at this time. He is to follow-up with his primary care provider. Patient verbalized understanding and agreement with plan. Decision to Disposition Date: Feb 02, 2018 Decision to Disposition Time: 17:00 Depart Departure Latest Vital Signs Vital Signs Date Time Temp Pulse Resp B/P (MAP) Pulse Ox O2 Delivery O2 Flow Rate FiO2 02/02/18 17:05 77 13 94 02/02/18 17:00 116/69 (85) 02/02/18 13:57 97.7 Impression: Primary Impression: Nausea & vomiting Condition: Improved Disposition: HOME OR SELF-CARE New Scripts Metoclopramide Hcl (REGLAN) 10 Mg Tablet 10 MG PO TID PRN for NAUSEA/VOMITING, #15 TAB Prov: DEANNA LEW [employer] 02/02/18 Pantoprazole Sodium (PANTOPRAZOLE SODIUM) 40 Mg Tablet.dr 40 MG PO QDAY, #30 TAB.SR Prov: DEANNA LEW [employer] TE[employer]ER 02/02/18 Patient Instructions: Acute Nausea and Vomiting (ED) Additional Instructions: Increase fluid intake. Get plenty of rest. Take the medication as prescribed. Follow up with a primary care provider in the next week. Return to the ER if condition worsens. Problem Qualifiers Primary Impression: Nausea & vomiting Vomiting type: cyclical vomiting Vomiting Intractability: non-intractable Qualified Codes: G43.A0 - Cyclical vomiting, not intractable SERGEY LEWE [facility] Feb 02, 2018 16:59
[2018-02-02 17:00] VITALS: BP 116/69
== END 2018-02-02 17:37 | disposition home or self-care (01) ==
LOC: ER 14:25
DX: G43.A0 Cyclical vomiting, in migraine, not intractable (principal)
CPT/HCPCS: 74022; 82150; 83690; 85025; 86677; 96361; 96365; 96375; 99284; C9113; J2270; J2405; J2550; J2765; J7030; J7050; 82040; 82247; 82310; 82374; 82435; 82565; 82947; 84075; 84132; 84155; 84295; 84450; 84460; 84520

== ENCOUNTER 2018-04-10 12:28 | Emergency (ER) | payer BC ==
[~2018-04-10 12:28] MED LIST changes: +METO-734 PO; +METR500T15 PO; -METR500T54 PO
[2018-04-10] MEDS ORDERED: TRAM-420 PO (12:46)
--- NOTE | 2018-04-10 12:49 | ER Report ---
History and Physical Time Seen By MD: 12:49 Hx. of Stated Complaint: PT HAS BEEN THROWING UP FOR A COUPLE OF HOURS. REPORTS HX OF STOMACH ULCERS. HPI/ROS CHIEF COMPLAINT: Nausea and vomiting HISTORY OF PRESENT ILLNESS: 23-year-old male patient presents to emergency room with complaint of nausea and vomiting. Patient states that he has a history of ulcers, he states he has a hiatal hernia. He states he's been prescribed Protonix, tramadol for this. He states that he isn't taking his medication like he is supposed to. He states that he may have eaten something that didn't agree with him last night. He states he woke up this morning and vomited and has continued to vomit since then. He states these vomited total of 15 times this morning. He states that there is nothing in his stomach is currently dry heaving. He denies any fevers but states that he has chills. He denies any thing that makes the that are worse. He states he does have some abdominal tenderness. REVIEW OF SYSTEMS: Respiratory: No cough, no dyspnea. Cardiovascular: No chest pain, no palpitations. Gastrointestinal: As noted above Musculoskeletal: No back pain. Allergies: Coded Allergies: montelukast (Verified Allergy, Mild, RASH, 02/02/18) Home Meds Active Scripts Metoclopramide Hcl (REGLAN) 10 Mg Tablet, 10 MG PO QID PRN for NAUSEA/VOMITING, #20 TAB Prov:DEANNA LEW [facility] 04/10/18 Promethazine Hcl (PROMETHAZINE HCL) 25 Mg Tablet, 25 MG PO Q8H PRN for NAUSEA/VOMITING, #12 TAB Prov:DEANNA LEW [facility] 04/10/18 Pantoprazole Sodium (PANTOPRAZOLE SODIUM) 40 Mg Tablet.dr, 40 MG PO QDAY, #30 TAB.SR Prov:DEANNA LEW [facility] 02/02/18 Ondansetron (ZOFRAN ODT) 4 Mg Tab.rapdis, 4 MG PO every 6 hours PRN for NAUSEA/VOMITING, #10 TAB TAKE 1 TABLET BY MOUTH EVERY 12 HOURS Prov:WESTON HATFIELD DO 01/07/18 Reported Medications Tramadol Hcl (TRAMADOL HCL) 50 Mg Tablet, 50-100 MG PO Q6H, TAB 04/10/18 Discontinued Scripts Metoclopramide Hcl (REGLAN) 10 Mg Tablet, 10 MG PO TID PRN for NAUSEA/VOMITING, #15 TAB Prov:DEANNA LEW [facility] 02/02/18 Promethazine Hcl (PROMETHAZINE HCL) 25 Mg Tablet, 25 MG PO Q4H PRN for NAUSEA/VOMITING, #14 TAB Prov:WESTON HATFIELD DO 01/07/18 Ondansetron (ZOFRAN ODT) 4 Mg Tab.rapdis, 4 MG PO Q8H PRN for NAUSEA, #20 TAB 0 Refills TAKE 1 TABLET BY MOUTH EVERY 12 HOURS Prov:RAFAEL SOTO MD 07/07/17 Past Medical/Surgical History Patient has a past medical history of gastric ulcers, hiatal hernia. Patient has surgical history of endoscopy. Reviewed Nurses Notes: Yes Hx Substance Use Disorder: No Hx Alcohol Use: No Constitutional Vital Sign - Last 24 Hours 04/10/18 04/10/18 04/10/18 04/10/18 12:28 12:34 12:34 12:58 Temp 98.1 Pulse ??? 78 78 Resp 18 B/P (MAP) 141/108 (119) 141/108 Pulse Ox 97 97 O2 Delivery Room Air 04/10/18 04/10/18 04/10/18 04/10/18 13:00 13:58 14:00 14:30 Pulse 64 59 52 Resp 12 15 16 B/P (MAP) 142/97 (112) 127/105 (112) 136/88 (104) Pulse Ox 99 90 96 04/10/18 04/10/18 04/10/18 04/10/18 15:00 15:25 15:30 15:35 Pulse 56 70 Resp 14 15 13 B/P (MAP) 137/105 (116) 124/77 (93) 139/93 (108) Pulse Ox 99 99 95 04/10/18 04/10/18 16:00 16:05 Pulse 74 Resp 14 B/P (MAP) 150/88 (108) Pulse Ox 97 Physical Exam General Appearance: The patient is alert, has no immediate need for airway protection and no current signs of toxicity. Respiratory: Chest is non tender, lungs are clear to auscultation. Cardiac: regular rate and rhythm Gastrointestinal: Abdomen is soft and tender, no masses, bowel sounds normal. Musculoskeletal: Neck: Neck is supple and non tender. Extremities have full range of motion and are non tender. Skin: No rashes or lesions. DIFFERENTIAL DIAGNOSIS: After history and physical exam differential diagnosis was considered for nausea and vomiting including but not limited to gastroenteritis, gastritis, appendicitis, and medication side effect. Medical Decision Making Data Points Result Diagram: 04/10/18 1238 04/10/18 1238 Laboratory Hematology Test 04/10/18 12:38 04/10/18 15:23 Red Blood Count 5.01 M/uL (4.00-5.60) Mean Corpuscular Volume 95.7 fL (80.0-96.0) Mean Corpuscular Hemoglobin 32.1 pg (26.0-33.0) Mean Corpuscular Hemoglobin Concent 33.6 g/dL (32.0-36.0) Red Cell Distribution Width 14.9 % (11.5-14.5) Mean Platelet Volume 7.6 fL (7.2-11.1) Neutrophils (%) (Auto) 68.2 % (39.4-72.5) Lymphocytes (%) (Auto) 21.2 % (17.6-49.6) Monocytes (%) (Auto) 6.1 % (4.1-12.4) Eosinophils (%) (Auto) 4.2 % (0.4-6.7) Basophils (%) (Auto) 0.3 % (0.3-1.4) Nucleated RBC Relative Count (auto) 0.0 /100WBC Neutrophils # (Auto) 6.4 K/uL (2.0-7.4) Lymphocytes # (Auto) 2.0 K/uL (1.3-3.6) Monocytes # (Auto) 0.6 K/uL (0.3-1.0) Eosinophils # (Auto) 0.4 K/uL (0.0-0.5) Basophils # (Auto) 0.0 K/uL (0.0-0.1) Nucleated RBC Absolute Count (auto) 0.00 K/uL Sodium Level 141 mmol/L (137-145) Potassium Level 3.8 mmol/L (3.5-5.0) Chloride Level 109 mmol/L (98-107) Carbon Dioxide Level 25 mmol/L (22-30) Blood Urea Nitrogen 19 mg/dl (9-21) Creatinine 1.20 mg/dl (0.66-1.25) Glomerular Filtration Rate Calc > 60.0 Random Glucose 108 mg/dl (75-110) Calcium Level 9.7 mg/dl (8.4-10.2) Total Bilirubin 0.8 mg/dl (0.2-1.3) Aspartate Amino Transf (AST/SGOT) 28 U/L (0-35) Alanine Aminotransferase (ALT/SGPT) 22 U/L (0-56) Alkaline Phosphatase 63 U/L (0-126) Total Protein 8.1 g/dl (6.3-8.2) Albumin 4.7 g/dl (3.5-5.0) Amylase Level 121 U/L (0-110) Lipase 344 U/L (23-300) Urine Color Straw Urine Clarity Clear Urine pH 6.0 pH (4.8-9.5) Urine Specific [place] 1.055 Urine Protein Negative mg/dL (NEGATIVE) Urine Glucose (UA) Negative mg/dL (NEGATIVE) Urine Ketones 20 mg/dL (NEGATIVE) Urine Blood Negative (NEGATIVE) Urine Nitrite Negative (NEGATIVE) Urine Bilirubin Negative (NEGATIVE) Urine Urobilinogen Negative mg/dL (0.2-1.9) Urine Leukocyte Esterase Negative (NEGATIVE) Urine RBC None /HPF (0-2/HPF) Urine WBC 1 /HPF (0-5/HPF) Urine Squamous Epithelial Cells None /LPF (</=FEW) Urine Bacteria Negative /HPF (NONE-FEW) Urine Mucus None /HPF (NONE-FEW) Chemistry Test 04/10/18 12:38 04/10/18 15:23 White Blood Count 9.4 k/uL (4.5-11.0) Red Blood Count 5.01 M/uL (4.00-5.60) Hemoglobin 16.1 g/dL (14.0-18.0) Hematocrit 47.9 % (42.0-52.0) Mean Corpuscular Volume 95.7 fL (80.0-96.0) Mean Corpuscular Hemoglobin 32.1 pg (26.0-33.0) Mean Corpuscular Hemoglobin Concent 33.6 g/dL (32.0-36.0) Red Cell Distribution Width 14.9 % (11.5-14.5) Platelet Count 238 K/uL (150-450) Mean Platelet Volume 7.6 fL (7.2-11.1) Neutrophils (%) (Auto) 68.2 % (39.4-72.5) Lymphocytes (%) (Auto) 21.2 % (17.6-49.6) Monocytes (%) (Auto) 6.1 % (4.1-12.4) Eosinophils (%) (Auto) 4.2 % (0.4-6.7) Basophils (%) (Auto) 0.3 % (0.3-1.4) Nucleated RBC Relative Count (auto) 0.0 /100WBC Neutrophils # (Auto) 6.4 K/uL (2.0-7.4) Lymphocytes # (Auto) 2.0 K/uL (1.3-3.6) Monocytes # (Auto) 0.6 K/uL (0.3-1.0) Eosinophils # (Auto) 0.4 K/uL (0.0-0.5) Basophils # (Auto) 0.0 K/uL (0.0-0.1) Nucleated RBC Absolute Count (auto) 0.00 K/uL Glomerular Filtration Rate Calc > 60.0 Calcium Level 9.7 mg/dl (8.4-10.2) Total Bilirubin 0.8 mg/dl (0.2-1.3) Aspartate Amino Transf (AST/SGOT) 28 U/L (0-35) Alanine Aminotransferase (ALT/SGPT) 22 U/L (0-56) Alkaline Phosphatase 63 U/L (0-126) Total Protein 8.1 g/dl (6.3-8.2) Albumin 4.7 g/dl (3.5-5.0) Amylase Level 121 U/L (0-110) Lipase 344 U/L (23-300) Urine Color Straw Urine Clarity Clear Urine pH 6.0 pH (4.8-9.5) Urine Specific [place] 1.055 Urine Protein Negative mg/dL (NEGATIVE) Urine Glucose (UA) Negative mg/dL (NEGATIVE) Urine Ketones 20 mg/dL (NEGATIVE) Urine Blood Negative (NEGATIVE) Urine Nitrite Negative (NEGATIVE) Urine Bilirubin Negative (NEGATIVE) Urine Urobilinogen Negative mg/dL (0.2-1.9) Urine Leukocyte Esterase Negative (NEGATIVE) Urine RBC None /HPF (0-2/HPF) Urine WBC 1 /HPF (0-5/HPF) Urine Squamous Epithelial Cells None /LPF (</=FEW) Urine Bacteria Negative /HPF (NONE-FEW) Urine Mucus None /HPF (NONE-FEW) Urinalysis Test 04/10/18 15:23 Urine Color Straw Urine Clarity Clear Urine pH 6.0 pH (4.8-9.5) Urine Specific [place] 1.055 Urine Protein Negative mg/dL (NEGATIVE) Urine Glucose (UA) Negative mg/dL (NEGATIVE) Urine Ketones 20 mg/dL (NEGATIVE) Urine Blood Negative (NEGATIVE) Urine Nitrite Negative (NEGATIVE) Urine Bilirubin Negative (NEGATIVE) Urine Urobilinogen Negative mg/dL (0.2-1.9) Urine Leukocyte Esterase Negative (NEGATIVE) Urine RBC None /HPF (0-2/HPF) Urine WBC 1 /HPF (0-5/HPF) Urine Squamous Epithelial Cells None /LPF (</=FEW) Urine Bacteria Negative /HPF (NONE-FEW) Urine Mucus None /HPF (NONE-FEW) EKG/Imaging Imaging COMPUTED TOMOGRAPHY OF THE Abdomen and Pelvis with CONTRAST INDICATION: Vomiting and elevated lipase and amylase. TECHNIQUE: Contiguous axial 3.[address] images were obtained through the abdomen and pelvis after 75 mL Isovue-370. Coronal and sagittal reformatted images were submitted. COMPARISON: CT February 02, 2018. FINDINGS: Lung bases: The lung bases are clear. Liver and hepatic vasculature: Subcentimeter hypodensity in the liver dome is too small to characterize but is probably a cyst. No ascites. Smooth surface. Gallbladder and bile ducts: Normal Spleen: Normal Pancreas: There is no stranding about the pancreas. The pancreatic duct is nondilated. There is no peripancreatic fluid collection or cyst. Adrenals: Normal Kidneys, ureters and bladder: Symmetric enhancement. No hydronephrosis or obstruction. Normal-appearing bladder. Retroperitoneum and aorta: Normal caliber aorta. GI tract, mesentery and peritoneum: No bowel obstruction. No free fluid or free air. Prostate: Unremarkable. Bones and soft tissues: No acute osseous abnormality. IMPRESSION: 1. No pancreatic stranding and no peripancreatic fluid collection or pseudocy st. No ductal dilation. One of the following dose optimization techniques was utilized in the performance of this exam: Automated exposure control; adjustment of the mA and/or kV according to the patient's size; or use of an iterative reconstruction technique. Specific details can be referenced in the facility's radiology CT exam operational policy. Report Dictated By: Idris Pierre MD at 04/10/2018 2:01 PM Report E-Signed By: Idris Pierre MD at 04/10/2018 2:12 PM ED Course/Re-evaluation ED Course Patient was admitted to an exam room, history and physical were obtained. Differential diagnoses were considered. On examination lungs are clear, heart is regular, abdomen is soft and diffusely tender. An IV was started, a CBC, CMP, amylase, lipase were obtained. Patient had a normal white count, CMP was unremarkable. Amylase and lipase were both equally high. I discussed the findings with the patient. It was decided that time to go ahead and do a CT scan of abdomen and pelvis to make sure there is no pancreatitis. The CT scan was negative. Patient received a dose of Zofran, GI cocktail, liter of normal saline. Patient had no improvement in his nausea and vomiting. Patient was then treated with Phenergan. He again had no improvement. On reevaluation his fluid was almost done I ordered a second liter of saline as well as Reglan. Patient had some improvement in his symptoms. On reevaluation he is still nauseous. I gave him an additional dose of Phenergan. I discussed the findings of the CT scan, which were negative for pancreatitis, with the patient. I asked patient had been drinking last night, he states that he had not. At this time we will go ahead and discharge patient home. He did have some improvement in his nausea and vomiting. We will send in a prescription for Reglan as well as Phenergan that he can use it conjuncture with his Zofran. I would like him to follow-up with a general surgeon here in town, as is likely that he may need to have a repeat endoscopy since been several years, to further evaluate causes for his nausea and vomiting. Patient verbalized understanding and agreement with plan. Decision to Disposition Date: Apr 10, 2018 Decision to Disposition Time: 16:13 Depart Departure Latest Vital Signs Vital Signs Date Time Temp Pulse Resp B/P (MAP) Pulse Ox O2 Delivery O2 Flow Rate FiO2 04/10/18 16:05 74 14 97 04/10/18 16:00 150/88 (108) 04/10/18 12:34 98.1 Room Air Impression: Primary Impression: Nausea & vomiting Condition: Improved Disposition: HOME OR SELF-CARE New Scripts Metoclopramide Hcl (REGLAN) 10 Mg Tablet 10 MG PO QID PRN for NAUSEA/VOMITING, #20 TAB Prov: DEANNA LEW 04/10/18 Promethazine Hcl (PROMETHAZINE HCL) 25 Mg Tablet 25 MG PO Q8H PRN for NAUSEA/VOMITING, #12 TAB Prov: DEANNA LEW 04/10/18 Patient Instructions: Acute Nausea and Vomiting (ED) Additional Instructions: Increase fluid intake. Clear liquid diet for the next 24-48 hours. After that you may advance diet as tolerated starting with complex carbohydrates; rice, bread or pasta. Follow up with your primary care provider in the next week. Return to the ER if condition worsens. I would recommend following up with one of the general surgeons to discuss an endoscopy and see if there are any causes for the nausea and vomiting that you are having. Problem Qualifiers Primary Impression: Nausea & vomiting Vomiting type: cyclical vomiting Vomiting Intractability: non-intractable Qualified Codes: G43.A0 - Cyclical vomiting, not intractable DEANNA LEW Apr 10, 2018 12:49
[2018-04-10] MEDS ORDERED: NS(*) 0.9% 1000 ML BAG 1,000 ML IV ONE ×2 (12:54→14:15)
[2018-04-10] MEDS ORDERED: ONDANSETRON 4 MG/2 ML VIAL IVP ONE (12:55)
[2018-04-10] MEDS ORDERED: MAG HYD/AL HYD/SIMETH 30ML UDC PO ONE (12:55)
[2018-04-10] MEDS ORDERED: LIDOCAINE 2% VISC SLN 15ML UDC PO ONE (12:55)
[2018-04-10 13:08] LABS: PLATELET COUNT, AUTOMATED 238 K/uL (150-450)
[2018-04-10] MEDS ORDERED: PROMETHAZINE 25 MG/ML 1 ML AMP IVP ONE ×2 (13:15→15:35)
[2018-04-10] MEDS ORDERED: IOPAMIDOL 76% 150 ML INFUS BTL 150 ML ONE (13:26)
[2018-04-10] MEDS ORDERED: METOCLOPRAMIDE 10 MG/2 ML SDV IVP ONE (14:15)
--- NOTE | 2018-04-10 14:22 | RADIOLOGY IMAGING REPORT ---
FACILITY: [facility] - [place] PATIENT NAME: Rei Roberto : 1995 MR: [id number] V: [id number] EXAM DATE: ORDERING PHYSICIAN: DEANNA LEW TECHNOLOGIST: Location: [facility] [place] Patient: Rei Roberto : 1995 Visit/Account:[id number] Date of Sevice: 04/10/2018 COMPUTED TOMOGRAPHY OF THE Abdomen and Pelvis with CONTRAST INDICATION: Vomiting and elevated lipase and amylase. TECHNIQUE: Contiguous axial 3.[address] images were obtained through the abdomen and pelvis after 75 m L Isovue-370. Coronal and sagittal reformatted images were submitted. COMPARISON: CT February 02, 2018. FINDINGS: Lung bases: The lung bases are clear. Liver and hepatic vasculature: Subcentimeter hypodensity in the liver dome is too small to character ize but is probably a cyst. No ascites. Smooth surface. Gallbladder and bile ducts: Normal Spleen: Normal Pancreas: There is no stranding about the pancreas. The pancreatic duct is nondilated. There is no peripancreatic fluid collection or cyst. Adrenals: Normal Kidneys, ureters and bladder: Symmetric enhancement. No hydronephrosis or obstruction. Normal-appe aring bladder. Retroperitoneum and aorta: Normal caliber aorta. GI tract, mesentery and peritoneum: No bowel obstruction. No free fluid or free air. Prostate: Unremarkable. Bones and soft tissues: No acute osseous abnormality. IMPRESSION: 1. No pancreatic stranding and no peripancreatic fluid collection or pseudocyst. No ductal dilation . One of the following dose optimization techniques was utilized in the performance of this exam: Autom ated exposure control; adjustment of the mA and/or kV according to the patient's size; or use of an i terative reconstruction technique. Specific details can be referenced in the facility's radiology C T exam operational policy. Report Dictated By: Idris Pierre MD at 04/10/2018 2:01 PM Report E-Signed By: Idris Pierre MD at 04/10/2018 2:12 PM [id number]
[2018-04-10 16:00] VITALS: BP 150/88
[2018-04-10] MEDS ORDERED: METO-734 PO (16:14)
[2018-04-10] MEDS ORDERED: PROM-110 PO (16:14)
== END 2018-04-10 16:30 | disposition home or self-care (01) ==
LOC: ER 12:43
DX: G43.A0 Cyclical vomiting, in migraine, not intractable (principal)
CPT/HCPCS: 74177; 81001; 82150; 83690; 85025; 96361; 96374; 96375; 96376; 99284; J2405; J2550; J2765; J7030; Q9967; 82040; 82247; 82310; 82374; 82435; 82565; 82947; 84075; 84132; 84155; 84295; 84450; 84460; 84520